=== PATIENT | male | born 1935 | race Caucasian/White ===

== ENCOUNTER 2016-10-19 08:29 | Emergency (ER) ==
--- NOTE | 2016-10-19 09:14 | PROVIDER DOCUMENTATION ---
HPI-General Adult - General Source: patient - History of Present Illness -Gen Adult Nature of Presenting Problems: Pt is a 81 yom who came to the ED with a cc of urinary retention. Pt reports he has not been able to urinate for 10 days and is having bladder pain. Pt reports three days ago he had a watery like diarrhea. Pt reports he gets up every hour and tries to urinate but cannot. Location of Pain/Injury: reports: abdomen (suprapubic) Pain Radiation: reports: no radiation Quality of Pain: reports: fullness Severity: reports: mild Onset/Duration: reports: other (10 days) Timing: reports: still present Modifying Factors: worse with: urinating Associated Symptoms: reports: diarrhea. denies: nausea Similar Symptoms Previously?: No Recently seen or treated by another doctor?: No <Ester Sandhu - Last Filed: 10/19/16 14:51> <Mando Boswell - Last Filed: 10/19/16 14:58> - General Chief Complaint: Urinary Retention Stated Complaint: CANT PEE Time Seen by Provider: 10/19/16 08:55 Allergies/Adverse Reactions: Patient Allergies Allergy/AdvReac Type Severity Reaction Status Date / Time Sulfa (Sulfonamide Allergy Severe Unknown Verified 10/19/16 09:27 Antibiotics) Home Medications: Home Medication List Medication Instructions Recorded Confirmed Last Taken Type ATORVAstatin [Lipitor] 40 mg PO QHS 03/09/14 10/19/16 10/18/16 History Buspirone [Buspar] 15 mg PO DAILY 03/09/14 10/19/16 10/18/16 History Ezetimibe [Zetia] 10 mg PO QHS 03/09/14 10/19/16 10/18/16 History Levothyroxine [Synthroid] 50 microgm PO DAILY 03/09/14 10/19/16 10/18/16 History Iron Carbonyl/Ascorbic Acid 1 each PO DAILY #0 tablet 03/25/14 10/19/16 Rx [Icar-C] Metoprolol Succinate E.r. [Toprol 25 mg PO DAILY 03/12/15 10/19/16 10/18/16 History Xl] Omeprazole 40 mg PO DAILY 11/28/15 10/19/16 10/09/16 History Loperamide [Imodium] 2 mg PO PRN PRN #16 capsule 10/19/16 Unknown Rx Review of Systems - Adult - REVIEW OF SYSTEMS - ADULT Constitutional: denies: chills, fever Eyes: reports: no symptoms reported Ears, Nose, Mouth & Throat: denies: epistaxis, mouth/dental pain Cardiovascular: reports: no symptoms reported Respiratory: reports: no symptoms reported Gastrointestinal: reports: abdominal pain, diarrhea. denies: nausea, vomiting Genitourinary: reports: urinary retention. denies: discharge, hesitency Musculoskeletal: reports: no symptoms reported Integumentary: reports: no symptoms reported Neurological: reports: no symptoms reported Psychiatric: reports: no symptoms reported Endocrine: reports: no symptoms reported Hematologic/Lymphatic: reports: no symptoms reported Allergic/Immunologic: reports: no symptoms reported All Other Systems: Reviewed and Negative <Ester Sandhu - Last Filed: 10/19/16 14:51> Past History - Adult - PAST MEDICAL HISTORY-ADULT Review of Records: reports: Old Records Reviewed, Nursing Assessment Review Major Childhood Illnesses: reports: denies history Cardiovascular: reports: aortic disease, CHF Respiratory: reports: denies history Gastrointestinal: reports: denies history Obstetrical/Gynecological: reports: denies history Genitourinary: reports: denies history Musculoskeletal: reports: denies history Neurological: reports: denies history Endocrine/Immune: reports: denies history Other Conditions: reports: denies history - PRIOR SURGERIES/PROCEDURES Surgical/Procedure History: reports: joint replacement (bilateral hips) - PRIOR HOSPITALIZATIONS Prior Hospitalizations: reports: for other non-related - IMMUNIZATION STATUS Childhood Immunizations: See Nurse Assessment Flu Vaccine: See Nurse Assessment - FAMILY HISTORY Family History: reviewed, not pertinent <Ester Sandhu - Last Filed: 10/19/16 14:51> Physical Exam-General - PHYSICAL EXAM-ADULT Initial Vital Signs Reviewed: Yes - CONSTITUTIONAL General Appearance: appears well, alert - EYES Eyes: PERRL/EOMI, pink conjunctivae, fundi clear, no AV nicking - HEAD, EARS, NOSE, MOUTH & THROAT HENMT: normocephalic/atraumatic, moist mucous membranes, normal ENT inspection, TMs normal, pharynx normal - NECK Neck: non-tender - RESPIRATORY Respiratory: chest non-tender, lungs clear, normal breath sounds, no pleuratic chest pain, no respiratory distress, no accessory muscle use - CARDIOVASCULAR Cardiovascular: normal peripheral pulses, regular rate, rhythm, no edema, no gallop, no JVD, no murmur - GASTROINTESTINAL (ABDOMEN) Abdominal Exam: soft, tenderness (suprapubic) - LYMPHATIC Lymphatic: no adenopathy - MUSCULOSKELETAL Back Exam: normal inspection, no CVA tenderness, no vertebral tenderness Extremity: normal range of motion, non-tender - SKIN Integumentary: normal color, warm/dry - NEUROLOGIC Neurologic: grossly normal - PSYCHIATRIC Psych/Mental Status: normal mood/affect, normal thought content, normal thought process, oriented x 3 <Ester Sandhu - Last Filed: 10/19/16 14:51> Progress - PLAN OF CARE/RESULTS Progress/Plan/Lab Results: Vital Signs - 24 hr 10/19/16 08:42 Temperature 97.8 F Pulse Rate 89 Respiratory 18 Rate Blood Pressure 153/84 O2 Sat by Pulse 100 Oximetry Orders Category Date Time Status Bladder Scan and Record Result ORDERED Care 10/19/16 08:46 Active CBC WITH ELECTRONIC DIFF [HEME] Stat Lab 10/19/16 09:06 Uncollected CMP [COMPREHENSIVE METABOLIC PANEL] [CHEM] Stat Lab 10/19/16 09:06 Uncollected UA NIMS W/REFLEX CULT [URINALYSIS] Stat Lab 10/19/16 09:06 Uncollected - REASSESSMENT Reassessment #1 Time Reassessed: 10:15 (Pt reports when all of this started he had black stool. Now his stool is watery. ) Status: unchanged <Ester Sandhu - Last Filed: 10/19/16 14:51> Departure - Departure Time of Disposition Order: 14:51 Certified Medical Emergency: Emergent <Ester Sandhu - Last Filed: 10/19/16 14:51> - Departure Time of Disposition Order: 14:53 Certified Medical Emergency: Emergent <Mando Boswell - Last Filed: 10/19/16 14:58> - Departure DIAGNOSIS: Dehydration Diarrhea Qualifiers: Diarrhea type: unspecified type Qualified Code(s): R19.7 - Diarrhea, unspecified Disposition: HOME 01 Condition: Stable Additional Instructions: force fluids to keep from being dehydrated ED Follow Up Instructions: You have been treated by a care provider in the Emergency Department. These instructions are being provided to you so you can have an understanding of how to care for yourself upon discharge. Upon discharge from the Emergency Department, you are responsible for making arrangements for follow-up care by a physician of your choice. Take all prescribed medications as directed. Return to the Emergency Department immediately for any new or worsening symptoms. You may call the Physician Referral phone number at [phone] to obtain a list of Physicians who are taking new patients. Prescriptions: Loperamide [Imodium] 2 mg PO PRN PRN #16 capsule PRN Reason: Diarrhea Referrals: Claudio Andrew MD [Primary Care Provider] - Attestation - Scribe Verification/Attestation Scribe:: Ester Sandhu Acting as Scribe for:: Mando Boswell Scribe documention review:: This chart was documented by a scribe and accurately reflects the service the provider performed and the decisions made by the provider. <Ester Sandhu - Last Filed: 10/19/16 14:51> Physician Attestation
[2016-10-19 09:35] LABS: MANUAL DIFF NEEDED? NO
[2016-10-19 09:53] LABS: ALBUMIN 4.2 g/dL (3.5-5.0); CALCIUM 9.2 mg/dL (8.8-10.2); POTASSIUM 4.3 mmol/L (3.5-5.1); TOTAL BILIRUBIN 1.13 mg/dL (0.20-1.00); TOTAL PROTEIN 7.1 g/dL (6.3-8.3)
[2016-10-19] MEDS ORDERED: NS 1,000 ML IV ONE (10:06)
[2016-10-19] MEDS ORDERED: NS 2,000 ML IV ONE (10:16)
[2016-10-19 10:22] LABS: EOS# 0.03 X1000 (0.0-0.7); EOS% 0.5 % (0.0-10.0); HEMATOCRIT 43.9 % (42.0-52.0); HEMOGLOBIN 14.7 g/dL (14.0-18.0); IMM GRAN# 0.02 X1000 (0.0-0.04); IMM GRAN% 0.3 % (0.0-0.5); LYMPH# 1.19 X1000 (1.2-3.4); LYMPH% 20.8 % (20.5-51.1); MCH 34.8 PG (27-31); MCHC 33.5 g/dL (33-37); MCV 103.8 FL (81-99); MONO# 0.62 X1000 (0.11-0.59); MONO% 10.8 % (1.7-9.3); MPV 10.8 FL (7.4-10.4); NEUT% 67.6 % (42.2-75.2); PLT 53 X1000 (130-400); RBC 4.23 XMIL (4.7-6.1)
[2016-10-19] MEDS ORDERED: IMODIUM PO ONE (13:32)
[2016-10-19 14:28] LABS: URINE CULTURE NEEDED? NO; URINE MICRO REVIEW NEEDED? NO; URINE SOURCE CLEAN CATCH
[2016-10-19 14:38] LABS: BILIRUBIN URINE NEGATIVE (NEGATIVE); BLOOD URINE NEGATIVE (NEGATIVE); COLOR YELLOW; GLUCOSE URINE NEGATIVE (NEGATIVE); LEUKOCYTES URINE NEGATIVE (NEGATIVE); NITRITE URINE NEGATIVE (NEGATIVE); PROTEIN URINE NEGATIVE (NEGATIVE); SP GRAVITY URINE 1.017; TURBIDITY URINE CLEAR (CLEAR); UROBILINOGEN URINE NORMAL (NORMAL)
[2016-10-19 14:39] LABS: UR EPITHELIAL CELLS <10 /HPF (<10); URINE BACTERIA NEGATIVE /HPF; URINE RBC <10 /HPF (<10); URINE WBC <10 /HPF (<10)
[2016-10-19 15:43] VITALS: BP 140/82
== END 2016-10-19 15:51 | disposition home or self-care (01) ==
LOC: ED 08:29
DX: E86.0 Dehydration (principal); R19.7 Diarrhea, unspecified; R33.9 Retention of urine, unspecified; R10.9 Unspecified abdominal pain; R10.819 Abdominal tenderness, unspecified site; Z79.899 Other long term (current) drug therapy; Z96.643 Presence of artificial hip joint, bilateral
CPT/HCPCS: 36415; 80053; 81001; 82270; 84436; 84443; 85025; 87324; 87449; 99284; J7030

== ENCOUNTER 2019-03-28 12:15 | Inpatient (IN) ==
--- NOTE | 2019-03-28 12:30 | EKG Report ---
Test Performed on : 03/28/2019 12:27:50 PM Test Reason : sob Blood Pressure : / mmHG Vent. Rate : 145 BPM Atrial Rate : 144 BPM P-R Int : 000 ms QRS Dur : 134 ms QT Int : 334 ms P-R-T Axes : 000 -61 130 degrees QTc Int : 518 ms Wide QRS tachycardia. Left axis deviation Left bundle branch block Abnormal ECG When compared with ECG of 14-JAN-2016 09:02, Wide QRS tachycardia. has replaced Sinus rhythm. Vent. rate has increased BY 77 BPM Unconfirmed Result
[2019-03-28] MEDS ORDERED: CARDIZEM IV ONE (12:36)
[2019-03-28] MEDS ORDERED: NS 1,000 ML ONE (12:42)
--- NOTE | 2019-03-28 13:07 | Diag Imaging Result Doc PS360 ---
EXAM: CHEST-1 VIEW 03/28/2019 HISTORY: tachycardia, dyspnea TECHNIQUE: AP portable at 1251 COMMENT: The inspiration is suboptimal. There is bibasilar platelike atelectasis. There is apparent pleural fluid on the left if not on the right. The latter may have diminished slightly since 03/24/2019. IMPRESSION: Poor inspiration. Bibasilar atelectasis. Left pleural effusion. Electronically signed by Randell Tran 03/28/2019 1:05 PM
[2019-03-28 13:12] LABS: EOS% 0.3 % (0.0-10.0); HEMATOCRIT 33.4 % (42.0-52.0); HEMOGLOBIN 10.2 g/dL (14.0-18.0); IMM GRAN% 0.3 % (0.0-0.5); LYMPH# 0.57 X1000 (1.2-3.4); LYMPH% 8.8 % (20.5-51.1); MCH 32.4 PG (27-31); MCHC 30.5 g/dL (33-37); MONO% 17.1 % (1.7-9.3); MPV 10.1 FL (7.4-10.4); NEUT# 4.77 X1000 (1.4-6.5); NEUT% 73.5 % (42.2-75.2); PLT 68 X1000 (130-400); RBC 3.15 XMIL (4.7-6.1); RDW 13.6 % (11.5-14.5); WBC 6.49 X1000 (4.8-10.8)
[2019-03-28 13:13] LABS: EOS# 0.02 X1000 (0.0-0.7); IMM GRAN# 0.02 X1000 (0.0-0.04); MONO# 1.11 X1000 (0.11-0.59)
[2019-03-28 13:14] LABS: ESTIMATED GFR > 60
[2019-03-28 13:22] LABS: AGAP 16; ALB/GLOB RATIO 1.4; ALBUMIN 3.7 g/dL (3.5-5.0); ALKALINE PHOSPHATASE 135 U/L (32-122); BUN 19 mg/dL (8-22); CALCIUM 7.9 mg/dL (8.8-10.2); CHLORIDE 104 mmol/L (98-107); COSMO 295; CREATININE 0.9 mg/dL (0.7-1.2); GLUCOSE 112 mg/dL (70-104); GOT 91 U/L (10-34); GPT 63 U/L (10-44); MAGNESIUM 0.8 mg/dL (1.5-2.7); POTASSIUM 4.3 mmol/L (3.5-5.1); SODIUM 147 mmol/L (136-145); TCO2 27 mmol/L (25-35); TOTAL BILIRUBIN 0.68 mg/dL (0.20-1.00); TOTAL PROTEIN 6.3 g/dL (6.3-8.3)
[2019-03-28 13:31] LABS: LYMPHS 6 % (21-51); MONO 22 % (1-9); SEGS 72 % (42-75)
[2019-03-28] MEDS ORDERED: MAGNESIUM SULFATE 4 GM/S.W.I. 4 GM/100 ML IVPB IV ONE (13:37)
[2019-03-28 14:08] LABS: INR 0.98; PROTIME 13.1 Seconds (11.0-16.0)
[2019-03-28 14:43] LABS: URINE SOURCE CLEAN CATCH
[2019-03-28 14:47] LABS: BILIRUBIN URINE NEGATIVE (NEGATIVE); BLOOD URINE SMALL (NEGATIVE); COLOR YELLOW; GLUCOSE URINE NEGATIVE (NEGATIVE); KETONE URINE NEGATIVE (NEGATIVE); LEUKOCYTES URINE NEGATIVE (NEGATIVE); NITRITE URINE NEGATIVE (NEGATIVE); PH URINE 5.5; PROTEIN URINE NEGATIVE (NEGATIVE); SP GRAVITY URINE 1.012; TURBIDITY URINE CLEAR (CLEAR); UROBILINOGEN URINE NORMAL (NORMAL)
[2019-03-28 14:48] LABS: UR EPITHELIAL CELLS <10 /HPF (<10); URINE BACTERIA NEGATIVE /HPF; URINE RBC 20-40 /HPF (<10); URINE WBC <10 /HPF (<10)
[2019-03-28 15:16] LABS: T4 6.76 ug/dL (4.60-12.00); TSH 3.68 uIUmL (0.27-4.20)
--- NOTE | 2019-03-28 15:33 | EKG Report ---
Test Performed on : 03/28/2019 12:52:27 PM Test Reason : CHANGE OF RHYTM Blood Pressure : / mmHG Vent. Rate : 073 BPM Atrial Rate : 073 BPM P-R Int : 190 ms QRS Dur : 142 ms QT Int : 418 ms P-R-T Axes : 000 -58 142 degrees QTc Int : 460 ms Normal sinus rhythm. Left axis deviation Left bundle branch block Abnormal ECG When compared with ECG of 28-MAR-2019 12:27, (Unconfirmed) Sinus rhythm. has replaced Wide QRS tachycardia. Vent. rate has decreased BY 72 BPM Unconfirmed Result
--- NOTE | 2019-03-28 15:37 | EKG Report ---
Test Performed on : 03/28/2019 1:37:12 PM Test Reason : ED. No order in [place] Blood Pressure : / mmHG Vent. Rate : 099 BPM Atrial Rate : 099 BPM P-R Int : 000 ms QRS Dur : 138 ms QT Int : 336 ms P-R-T Axes : 000 -59 135 degrees QTc Int : 431 ms Undetermined rhythm Left axis deviation Left bundle branch block Abnormal ECG When compared with ECG of 28-MAR-2019 12:52, (Unconfirmed) Current undetermined rhythm precludes rhythm comparison, needs review Unconfirmed Result
[2019-03-28] MEDS ORDERED: ZOFRAN IV PRN (15:48)
[2019-03-28] MEDS ORDERED: TYLENOL PO PRN (15:48)
--- NOTE | 2019-03-28 15:55 | HISTORY AND PHYSICAL ---
PRIMARY CARE PHYSICIAN: Dr. Andrew. FOLDED TOWEL MACHINE OPERATOR: Dr. Joiner. CHIEF COMPLAINT: Fatigue, dyspnea on exertion and tachycardia. HISTORY OF PRESENTING ILLNESS: This is an 83-year-old male who presents to [facility] via EMS after he was seen at his primary care physician's clinic this morning and was found to be tachycardic and dyspneic on exertion, so he was sent to the emergency room for evaluation. When he arrived we did an EKG that showed some atrial fibrillation flutter at 145 with a wide QRS and a known left bundle branch block. He was given 15 mg of Cardizem IV x1. Rate has decreased to 103. Laboratory data: Showed a sodium of 147, magnesium of 0.8. ProBNP of 27,668 so he is being admitted for further evaluation and treatment. PAST MEDICAL HISTORY: AAA, myelodysplastic syndrome, CHF, hypertension, CVA, hypothyroidism, skin cancer, prostate cancer, coronary artery disease and hyperlipidemia. PAST SURGICAL HISTORY: CABG and aortic valve replacement, heart stent placement, hernia, bilateral hip replacement, and a lumbar surgery. FAMILY HISTORY: Reviewed and noncontributory. SOCIAL HISTORY: Currently lives with family. Denies any tobacco use. Drinks 2 glasses of wine a day and denies any illicit drug use. ALLERGIES: Sulfa. HOME MEDICATIONS: A current list will need to be obtained, reconciled, reviewed and restarted as appropriate, will place an order for nursing to update and confirm home medications. LABORATORY DATA: Showed a white blood cell count of 6.49, hemoglobin 10.2, hematocrit 33.4, platelets 68,000. Sodium 147, potassium 4.3, chloride 104, CO2 27, BUN of 19, creatinine 0.9, glucose 112, magnesium of 0.8, AST of 91, ALT 63, alkaline phosphatase 135. Troponin was 0.027. ProBNP of 27,668. Urinalysis was negative. EKG showed atrial fibrillation- flutter with a wide QRS at 145 with a known left bundle branch block. Chest x-ray showed poor inspiration, bibasilar atelectasis and a left pleural effusion. REVIEW OF SYSTEMS: He denied any fever, chills, blurred vision, dizziness. He denied any chest pain, palpitations. He did have dyspnea on exertion, shortness of breath, tachycardia, fatigue. Denied any abdominal pain, constipation, diarrhea, burning or hurting with urination. PHYSICAL EXAMINATION: On arrival he had a temperature of 97.7 degrees, pulse 145, respirations 29, blood pressure 128/87, saturating 95% on 2 L via nasal cannula. Currently he remains in atrial fibrillation at 103. GENERAL: This is an 83-year-old male sitting up in the bed, answers questions appropriately. He is noted to be thin, cachectic and pale in color. HEEMNT: Normocephalic, atraumatic. Normal ENT inspection. Oropharynx and nares are clear. EYES: Pupils are equal, round, reactive to light and accommodation. Extraocular movements are intact. NECK: Normal inspection, normal range of motion. LUNGS: Clear to auscultation bilaterally with equal lung expansion and chest wall movement. HEART: With irregular rate and rhythm. No murmurs, rubs, or gallops. ABDOMEN: Soft, nontender, nondistended. Bowel sounds are present x4 quadrants. MUSCULOSKELETAL: 4/5 strength x4 extremities. NEUROLOGICAL: The cranial nerves 2-12 appear grossly intact. ASSESSMENT: 1. New onset atrial fibrillation. 2. Hypomagnesemia. 3. Elevated liver function tests. 4. Congestive heart failure history of. PLAN: He will be admitted to the PVC unit placed on telemetry, O2 per protocol. We will check an echocardiogram. We will start him on Cardizem 30 mg p.o. q.6 hours. We will consult cardiology. He was given magnesium 4 g IV in the emergency room. We will recheck a level in the morning along with a CBC, BMP. He has a TSH, free T4 level pending and further orders after seen by attending and by principal consultant. Dictated by KENDRA Thompson for Varghese Hinojosa MD cc: KENDRA Thompson MD Kenneth E. Mashburn, MD
--- NOTE | 2019-03-28 16:29 | HISTORY AND PHYSICAL ---
ADDENDUM REPORT H P was done by Yaneth Driftwood Patient admitted on 03/2201/02/2019. He is a patient of Dr. Andrew. Apparently saw Dr. Andrew in his office. He had some palpitations. This showed significant tachycardia reported as a wide complex. Suspected it was atrial fibrillation. He was found to be tachycardic, and he has complained of dyspnea on exertion. Was sent to the emergency room. He had an EKG that showed some atrial fibrillation with a rate of 145, wide-complex QRS, known left bundle branch block. He was given 15 mg Cardizem IV, and the rate decreased to 103. Sodium was 147. Magnesium was 0.8. ProBNP 27,668. PAST MEDICAL HISTORY: Includes abdominal aortic aneurysm, myelodysplastic syndrome, congestive heart failure, hypertension, CVA, hypothyroidism, skin cancer, prostate cancer, coronary artery disease, and hyperlipidemia. PAST SURGICAL HISTORY: CABG, aortic valve replacement, heart stent placement, hernia, bilateral hip replacement, and lumbar surgery. PLAN: To supplement his magnesium. See if we can control rate. Cardiology to follow. Note that he had elevation in his liver function tests or his transaminases, and he has a history of congestive heart failure. Currently, he is on diltiazem 30 mg p.o. q.6 h., and he was given magnesium 4 g IV. REVIEW OF HIS LABORATORY DATA: Hematocrit 33, hemoglobin 10, white blood cell count 6490, platelet count 68,000. Sodium 147, potassium 4.3, chloride 104, BUN 19, creatinine 0.9. Magnesium was 0.8. Calcium 7.9 with an albumin of 3.7. ProBNP 27,668. cc: Varghese Hinojosa MD
[2019-03-28] MEDS: CARDIZEM PO SCH (20:38)
--- NOTE | 2019-03-28 23:51 | ECHO REPORT ---
ORDER DATE: 03/28/2019 MEASUREMENTS: Septal thickness 1.1, left ventricular internal diameter in diastole 5.0, posterior wall thickness 1.0. Left atrium 5.2, aortic root 3.2. SUMMARY: 1. Fair quality study. 2. Aortic valve has been replaced with bioprosthesis which appears to open adequately on 2- dimensional images. Peak gradient across the aortic valve is 33 mmHg with a mean gradient 16 mmHg. Values consistent with adequate prosthetic valve function. There is mild aortic regurgitation. The aortic root is normal in size. The proximal ascending aorta is mild to moderately dilated. Mitral, tricuspid and pulmonic valves are without evidence of structural abnormality with mild mitral regurgitation, mild tricuspid regurgitation, and trace pulmonic insufficiency. The estimated systolic PA pressure by Doppler is 65 to 70 mmHg suggesting moderate to severe pulmonary hypertension. 3. Normal left ventricular chamber size with borderline concentric left hypertrophy is suggested. Estimated left ejection fraction approximately 25% in the setting of global hypokinesis and paradoxical septal wall motion. The latter is probably related to interventricular conduction abnormality. Left atrium is moderately enlarged. Right atrium is mildly enlarged. Right ventricle was normal in size with grossly preserved right ventricular systolic function. 4. No pericardial effusion. 5. Right pleural effusion noted. 6. Mild dilatation of inferior vena cava suggests mild elevation central venous pressure. 7. Atrial fibrillation during study. cc: MD Yaneth Gill CRNP
[2019-03-29] MEDS: CARDIZEM PO SCH ×2 (02:57→08:23)
[2019-03-29 07:27] LABS: EOS# 0.04 X1000 (0.0-0.7); EOS% 0.7 % (0.0-10.0); HEMATOCRIT 30.2 % (42.0-52.0); HEMOGLOBIN 9.1 g/dL (14.0-18.0); LYMPH# 0.76 X1000 (1.2-3.4); LYMPH% 14.1 % (20.5-51.1); MCH 32.5 PG (27-31); MCHC 30.1 g/dL (33-37); MCV 107.9 FL (81-99); MONO# 0.62 X1000 (0.11-0.59); MONO% 11.5 % (1.7-9.3); MPV 10.7 FL (7.4-10.4); NEUT# 3.98 X1000 (1.4-6.5); NEUT% 73.7 % (42.2-75.2); PLT 71 X1000 (130-400); RDW 13.7 % (11.5-14.5)
[2019-03-29 07:39] LABS: AGAP 11; BUN 18 mg/dL (8-22); CALCIUM 8.4 mg/dL (8.8-10.2); CHLORIDE 103 mmol/L (98-107); COSMO 288; CREATININE 0.7 mg/dL (0.7-1.2); ESTIMATED GFR > 60; GLUCOSE 119 mg/dL (70-104); SODIUM 143 mmol/L (136-145); TCO2 29 mmol/L (25-35)
--- NOTE | 2019-03-29 07:56 | EKG Report ---
Test Performed on : 03/29/2019 07:51:46 AM Test Reason : cardiac arrhythmia Blood Pressure : / mmHG Vent. Rate : 072 BPM Atrial Rate : 072 BPM P-R Int : 236 ms QRS Dur : 142 ms QT Int : 434 ms P-R-T Axes : 000 -16 218 degrees QTc Int : 475 ms Sinus rhythm. with 1st degree AV block. Left bundle branch block Abnormal ECG When compared with ECG of 28-MAR-2019 13:37, (Unconfirmed) Previous ECG has undetermined rhythm, needs review T wave inversion now evident in Inferior leads Confirmed by Mallika Fletcher MD ([id number]) on 03/29/2019 8:31:03 AM
--- NOTE | 2019-03-29 09:03 | EKG Report ---
Test Performed on : 03/29/2019 08:46:55 AM Test Reason : Rhythm Change Blood Pressure : / mmHG Vent. Rate : 144 BPM Atrial Rate : 147 BPM P-R Int : 000 ms QRS Dur : 134 ms QT Int : 338 ms P-R-T Axes : 000 -53 138 degrees QTc Int : 523 ms Wide QRS tachycardia. Left axis deviation Left bundle branch block Abnormal ECG When compared with ECG of 29-MAR-2019 07:51, Wide QRS tachycardia. has replaced Sinus rhythm. Vent. rate has increased BY 72 BPM Confirmed by Mallika Flecther MD ([id number]) on 03/30/2019 12:01:45 PM
[2019-03-29] MEDS ORDERED: LASIX IV ONE (13:02)
[2019-03-29] MEDS ORDERED: LOPRESSOR IV PRN (13:04)
[2019-03-29] MEDS ORDERED: LOVENOX 1 MG/KG SUBQ SCH (13:15)
--- NOTE | 2019-03-29 13:34 | CARDIOLOGY CONSULTATION ---
DATE: 03/29/2019 CHIEF COMPLAINT ON PRESENTATION: Heart racing, fatigue and dyspnea. HISTORY OF PRESENT ILLNESS: Mr. Christensen is an 83-year-old male with a history of coronary disease, coronary artery bypass grafting and aortic stenosis. He had a 19 mm Colt-Ruano pericardial valve placed in 2013. He presented for palpitations that seems like it has been going on for as long as a month. He noted increased fatigue and what sounds like orthopnea as well. He was subsequently seen by his primary care physician yesterday, who referred him to [facility] for evaluation of new onset atrial fibrillation. Presently, the patient reports he feels better although his heart rate still is in the 100s to 110s and he remains in atrial fibrillation. PAST MEDICAL HISTORY: Significant for: 1. Coronary disease with history of myocardial infarction in 1994 in [place]. In addition, he has a history of coronary artery bypass grafting in April 2014 at which time he had a vein graft to the first diagonal as well as tissue valve replacement of his aortic valve. 2. Aortic stenosis status post aortic valve replacement in April 2014 with a 19 mm Colt- Ruano pericardial valve. 3. Paroxysmal atrial fibrillation which previously had been postoperative. 4. COPD. 5. Hypertension. 6. Hyperlipidemia. 7. Hypothyroidism. 8. History of TIA. SOCIAL HISTORY: Currently lives with family. No tobacco. FAMILY HISTORY: Hypertension. REVIEW OF SYSTEMS: A 10 system review of systems is negative except for those things mentioned in the HPI. PHYSICAL EXAMINATION: Vital signs: Patient is afebrile. His heart rate currently is in the 100s to 110s, blood pressure most recently is 119/62. He has limited intake and output data. Generally: No acute distress. HEENT: Oropharynx is moist. Poor dentition. Eye examination shows pink conjunctivae, white sclerae. Neck: Shows no obvious thyromegaly or thyroid tenderness. Cardiovascular: He sounds to be in an irregularly irregular rhythm. He has no obvious murmurs. He has no S3. He has no lower extremity edema. He has warm and well perfused extremities. Chest: Clear bilaterally with the exception of mild reduction in breath sounds in what sounds like the left base. He has no increased work of breathing. Abdomen: Soft, nontender, nondistended. He has no obvious organomegaly. Skin: Warm and dry throughout without any rashes. Neurological: He is moving all extremities well. He has no lateralizing deficits. PERTINENT DATA: His initial EKG shows a left bundle branch block with a tachycardic rate. Unclear if this is atrial fibrillation. His next EKG occurring on the at 13:37 shows what appears to be atrial fibrillation, rate of 99 beats per minute. A left bundle continues to be present. Next EKG on the at 12:52 shows what appears to be possible sinus rhythm, atrial fibrillation, left bundle. Subsequent EKG the at 7:51 appears to show probable coarse atrial fibrillation versus flutter, rate of 72 beats per minute, and next EKG on the at 8:46 shows a rapid wide complex rhythm with his baseline left bundle and a rate of 144 beats per minute. His chest x-ray suggested a left pleural effusion. His lab data showed a white count 5.4, hematocrit 30, platelet count of 71,000. His sodium is 143, potassium is 4, BUN 18, creatinine 0.7. His proBNP yesterday [place] 64014. His albumin is 3.7. His cardiac enzymes were negative. He had an echocardiogram performed yesterday demonstrating a bioprosthetic valve with a mean gradient of 16, ejection fraction of 25% in the setting of a global hypokinesis. This appeared to be a new reduction in EF based on his last MUGA scan which was in April 2018 which calculated his ejection fraction at 58%. ASSESSMENT: Mr. Christensen is an 83-year-old gentleman with a recent onset of atrial fibrillation with new reduction in his left ventricular systolic function. PLAN: At this point, we will proceed with diuresis of the patient. I will give him 40 mg of Lasix today and tomorrow. We will change him from Cardizem to metoprolol 25 q.6 hours, place him on IV Lopressor as well for p.r.n. usage. We will check a basic metabolic panel, mag, proBNP. We will check laboratories in the morning. Further recommendations to follow. Likely will continue with attempts at diuresis of the patient and then consideration for possible cardioversion. Considering his length of symptoms, he could have a rate-related drop in his ejection fraction. I would likely treat him first and then potentially pursue an ischemia evaluation if his EF does not recover. cc: Perry Sagastume MD
[2019-03-29] MEDS: LOPRESSOR PO SCH ×2 (14:05→20:25)
--- NOTE | 2019-03-29 17:13 | PROGRESS NOTE ---
DATE: 03/29/2019 SUBJECTIVE: Mr. Christensen is feeling better. His breathing is a little better. On the monitor, it is hard to tell; it looks like it is regular rhythm, but it looks like there may be some flutter waves as well. OBJECTIVE: Temperature 97.7 degrees, pulse 70, respirations 20, blood pressure 121/64. Pupils are equal and round. Lungs are clear in all lung vogel. Cardiovascular: Regular rhythm and rate without murmur or S3. Abdomen is soft. Skin is warm and dry. ASSESSMENT AND PLAN: 1. Recent onset of atrial fibrillation with a new reduction in his left ventricular systolic function. We will proceed with diuresis, giving 40 mg of Lasix today and tomorrow. Change him from Cardizem to metoprolol 25 mg q.6 h. and IV Lopressor for p.r.n. heart rate. Follow his electrolytes and proBNP. Seems to be doing better. 2. History of hypothyroidism. Continue his Synthroid. 3. Supplemented his magnesium. 4. Mild elevation of liver function tests. This may just be passive congestion. Looking at his echocardiogram, aortic valve was replaced with a bioprosthesis which appears to be opening adequately. There is mild aortic regurgitation. PA pressure 65 to 70 mmHg. Mild mitral regurgitation, mild tricuspid regurgitation. Normal left ventricular chamber sizes, but ejection fraction approximately 25% in the setting of global hypokinesis and paradoxical septal wall motion, and the latter is probably related to intraventricular conduction abnormality. Left atrium moderately enlarged. Right atrium mildly enlarged. No pericardial effusion. cc: Varghese Hinojosa MD
[2019-03-29] MEDS: LIPITOR PO SCH (20:25)
[2019-03-30] MEDS: LOPRESSOR PO SCH ×4 (02:55→20:29)
[2019-03-30] MEDS ORDERED: SYNTHROID PO SCH (07:00)
[2019-03-30 08:51] LABS: AGAP 13; BUN 25 mg/dL (8-22); CALCIUM 8.6 mg/dL (8.8-10.2); CHLORIDE 101 mmol/L (98-107); COSMO 281; CREATININE 0.8 mg/dL (0.7-1.2); ESTIMATED GFR > 60; GLUCOSE 89 mg/dL (70-104); MAGNESIUM 1.9 mg/dL (1.5-2.7); POTASSIUM 4.3 mmol/L (3.5-5.1); SODIUM 139 mmol/L (136-145); TCO2 25 mmol/L (25-35)
[2019-03-30] MEDS ORDERED: TOPROL XL PO SCH (09:00)
[2019-03-30] MEDS ORDERED: FERROUS SULFATE PO SCH (09:00)
[2019-03-30] MEDS ORDERED: BUSPAR PO SCH ×2 (09:00→11:18)
--- NOTE | 2019-03-30 09:02 | PROGRESS NOTE ---
DATE: 03/30/2019 SUBJECTIVE: Mr. Christensen is feeling better. He is breathing comfortably. I think he would like to go home. OBJECTIVE: Temperature 97.9 degrees, pulse 82, respirations 15, blood pressure 137/73. Pupils are equal and round. Lungs are clear in all lung vogel. Cardiovascular Examination: Regular rhythm and rate without murmur or S3. Urine output was 900 mL. ASSESSMENT AND PLAN: Recent onset of atrial fibrillation with new reduction in left ventricular function. Continue to diurese. I changed his Cardizem to metoprolol 25 mg by mouth every 6 hours. He seems to be doing well. I guess there is a possibility that he could go home today. We will see what cardiology wants to do. Chemistries, we need to check again. This morning, renal function looks good. We did supplement his magnesium. We will wait on his lab. cc: Varghese Hinojosa MD
[2019-03-30] MEDS: VITAMIN E PO SCH (09:38)
[2019-03-30] MEDS: PRILOSEC PO SCH (09:39)
[2019-03-30] MEDS: VITAMIN B-12 PO SCH (09:39)
[2019-03-30] MEDS: COZAAR PO SCH (09:39)
[2019-03-30] MEDS: ZINC SULFATE PO SCH (09:39)
[2019-03-30] MEDS: LASIX IV SCH (09:40)
[2019-03-30] MEDS: ASPIRIN PO SCH (09:40)
--- NOTE | 2019-03-30 15:13 | EKG Report ---
Test Performed on : 03/30/2019 2:45:28 PM Test Reason : afib Blood Pressure : / mmHG Vent. Rate : 068 BPM Atrial Rate : 340 BPM P-R Int : 000 ms QRS Dur : 140 ms QT Int : 454 ms P-R-T Axes : 000 -52 145 degrees QTc Int : 482 ms Wide QRS rhythm. Left axis deviation Nonspecific intraventricular block Cannot rule out Anteroseptal infarct , age undetermined T wave abnormality, consider lateral ischemia Abnormal ECG When compared with ECG of 29-MAR-2019 08:46, Wide QRS rhythm. has replaced Wide QRS tachycardia. Vent. rate has decreased BY 76 BPM Confirmed by Chance GALLEGOS, Mallika Tirado ([id number]) on 03/31/2019 12:10:45 PM
[2019-03-30] MEDS: CORDARONE PO SCH (20:28)
[2019-03-30] MEDS: BUSPAR PO SCH (20:28)
[2019-03-30] MEDS: LIPITOR PO SCH (20:29)
--- NOTE | 2019-03-30 21:45 | CARDIOLOGY PROGRESS NOTE ---
DATE: 03/30/2019 SUBJECTIVE: Mr. Christensen reports he feels much better. His breathing has improved. PHYSICAL EXAMINATION: Vital signs: The patient is afebrile. Heart rate 71, blood pressure 92/55. Most systolics have been in the 110s to 130s. His I's and O's are somewhat difficult to track. Generally: No acute distress. Cardiovascular: He sounds to be in a regular rate and rhythm. Telemetry currently seems to show normal sinus, but during the course of the examination it appeared he converted into an atrial fibrillation in the low 100s. Extremities: No lower extremity edema. Chest: Has reduced breath sounds in the left base with some rales. He has no increased work of breathing. Abdomen: Soft, nontender, nondistended. PERTINENT DATA: His electrocardiogram checked today at 14:45 seems to show sinus rhythm, left bundle, rate of 68 beats per minute. His lab data shows a sodium 139, potassium 4.3, his BUN is 25, creatinine 0.8. His proBNP is 12,204, which is down from 27,000. ASSESSMENT: Mr. Christensen is an 83-year-old gentleman who presents in new onset heart failure with new onset paroxysmal atrial fibrillation. PLAN: His EF is low and possibly rate related. His rate is much better controlled. He seems to be having periodic bouts of sinus. I will place him on amiodarone 400 b.i.d. as I believe considering his ejection fraction issues it would be beneficial to maintain sinus rhythm. I will change him over to 50 of oral metoprolol b.i.d. starting in the morning. He is on an ARB. We will continue with the IV Lasix, check laboratories as well as a chest x-ray in the morning. I have asked Dr. Carlin to see the patient to comment on the use of anticoagulants in a patient with chronic issues with thrombocytopenia. He certainly has an elevated stroke risk considering his history of hypertension, his age and now heart failure. That would give him a CHADS-VASc of 4. cc: Perry Sagastume MD
[2019-03-31] MEDS: SYNTHROID PO SCH (06:24)
--- NOTE | 2019-03-31 07:31 | EKG Report ---
Test Performed on : 03/31/2019 07:11:14 AM Test Reason : afib Blood Pressure : / mmHG Vent. Rate : 076 BPM Atrial Rate : 060 BPM P-R Int : 000 ms QRS Dur : 154 ms QT Int : 454 ms P-R-T Axes : 000 -61 135 degrees QTc Int : 510 ms Atrial fibrillation. Left axis deviation Left bundle branch block Abnormal ECG When compared with ECG of 30-MAR-2019 14:45, (Unconfirmed) Atrial fibrillation. has replaced Wide QRS rhythm. Confirmed by Mallika Fletcher MD ([id number]) on 03/31/2019 12:11:23 PM
[2019-03-31] MEDS: VITAMIN E PO SCH (08:33)
[2019-03-31] MEDS: LASIX IV SCH (08:33)
[2019-03-31] MEDS: CORDARONE PO SCH ×2 (08:33→22:44)
[2019-03-31] MEDS: COZAAR PO SCH (08:34)
[2019-03-31] MEDS: VITAMIN B-12 PO SCH (08:34)
[2019-03-31] MEDS: PRILOSEC PO SCH (08:34)
[2019-03-31] MEDS: BUSPAR PO SCH (08:34)
[2019-03-31] MEDS: ZINC SULFATE PO SCH (08:34)
[2019-03-31] MEDS: ASPIRIN PO SCH (08:34)
[2019-03-31] MEDS: FERROUS SULFATE PO SCH (08:34)
[2019-03-31] MEDS: LOPRESSOR PO SCH ×2 (08:34→22:45)
[2019-03-31 08:40] LABS: AGAP 14; BUN 29 mg/dL (8-22); CHLORIDE 101 mmol/L (98-107); COSMO 289; GLUCOSE 99 mg/dL (70-104); POTASSIUM 3.9 mmol/L (3.5-5.1); SODIUM 142 mmol/L (136-145); TCO2 27 mmol/L (25-35)
[2019-03-31 08:41] LABS: CALCIUM 9.2 mg/dL (8.8-10.2); CREATININE 1.1 mg/dL (0.7-1.2); ESTIMATED GFR > 60; MAGNESIUM 1.6 mg/dL (1.5-2.7)
[2019-03-31] MEDS ORDERED: MAGNESIUM SULFATE 2 GM/S.W.I. 2 GM/50 ML IVPB IV ONE (08:43)
--- NOTE | 2019-03-31 09:16 | CARDIOLOGY PROGRESS NOTE ---
DATE: 03/31/2019 SUBJECTIVE: Mr. Christensen reports his breathing is roughly stable over the last 24 hours. PHYSICAL EXAMINATION: Afebrile. Heart rate 73, blood pressure 115/68. His Is and Os continue to be somewhat difficult to estimate secondary to a number of continent voids not measured. General: He is in no acute distress. Cardiovascular: He sounds to be in a regular rate and rhythm. He has no obvious murmurs. He has no S3. His telemetry seems to show sinus rhythm presently. His chest exam has mild reduction in breath sounds in the left base but otherwise appears clear. His abdomen is soft, nontender. PERTINENT DATA: Sodium 142, potassium 3.9, BUN 29, creatinine is 1.1 which is a trend up from his previous. His magnesium level is 1.6. ASSESSMENT: Mr. Christensen is an 83-year-old gentleman who presented with new onset atrial fibrillation and reduced ejection fraction. PLAN: Likely, his reduced EF is a rate-related reduction. He has been instituted on amiodarone. We are pending evaluation by hematology, who has seen him previously to hopefully comment on his candidacy for anticoagulation in the setting of his atrial fibrillation. We will continue him on an ARB and beta-keisha which seems to be controlling his rate. We will place him on amiodarone with the hope to maintain sinus rhythm. I believe he would be reasonable to discharge tomorrow. I have changed him over to oral Lasix starting tomorrow with his last IV dose being administered today. A chest x-ray is pending. cc: Perry Sagastume MD
--- NOTE | 2019-03-31 09:40 | Diag Imaging Result Doc PS360 ---
EXAM: CHEST-2 VIEWS HISTORY: hypoxia TECHNIQUE: Chest two views COMPARISON: 03/28/2019 FINDINGS: Slightly improved inspiratory effort and aeration compared to the prior study. Basilar atelectasis with pleural effusions remain. A heart valve has been replaced. Decreased pulmonary edema. IMPRESSION: Mild interval improvement. Electronically signed by Gabriel Lomas 03/31/2019 9:38 AM
--- NOTE | 2019-03-31 10:31 | PROGRESS NOTE ---
DATE: 03/31/2019 SUBJECTIVE: This patient feels better. Heart rate has been controlled. Cardiology department following this patient closely. Hopefully, we can get hematology/oncology on board to take care of the anticoagulation. He is still in atrial fibrillation. OBJECTIVE: Vital Signs: Temperature 97.2 degrees, pulse 73, respiratory rate 14, blood pressure 115/68, oxygen saturation 100% on 2 L of nasal cannula. HEENT: Head normocephalic. No trauma. PERRLA. Neck: Supple. No JVD. No masses. Central trachea. Chest: Clear to auscultation. No wheezing. No rales. Cardiovascular: Irregularly irregular rate and rhythm. Abdomen: Soft, nontender, nondistended. No hepatosplenomegaly. Extremities: No edema. Neurological Examination: The patient is alert. He is oriented x3. No focal deficits. Laboratory: Sodium 142, potassium 3.9, chloride 101, bicarbonate 27, BUN 29, creatinine 1.1, glucose 99, calcium 9.2, magnesium 1.6. ASSESSMENT AND PLAN: 1. Recent onset atrial fibrillation with new reduction in the left ventricular systolic function. We will continue following the recommendation of the cardiology department. They are following this patient closely. This patient is feeling better. He should be on anticoagulation but given his platelet count, we will wait for hematology/oncology evaluation. 2. Congestive heart failure, systolic dysfunction, low ejection fraction. Followed by cardiology. Continue with diuresis and treatment. 3. Thrombocytopenia. This is chronic, at least since 2013. It seems to be stable. We will get a new complete blood count in the morning. Hematology/oncology has been consulted. 4. History of aortic abdominal aneurysm. Aware. 5. History of myelodysplastic syndrome. As per the patient, he has not been followed by the hematology/oncology department, or at least he does not remember that. We will monitor. 6. History of cerebrovascular accident. Aware. No new issues. 7. History of prostate and skin cancer. Aware. 8. History of coronary artery disease and hyperlipidemia. Aware. Cardiology on board. No chest pain. 9. Hypomagnesemia, resolved. 10. Macrocytic anemia. I will get the anemia workup. Hematology/oncology has been consulted. cc: Ammon Doran MD
--- NOTE | 2019-03-31 20:14 | HEMO/ONC CONSULTATION ---
DATE: 03/31/2019 ADMITTING PHYSICIAN: Dr. Hinojosa. REQUESTING PHYSICIAN: Dr. Sagastume. We appreciate this consult. CHIEF COMPLAINT: History of thrombocytopenia, in need of anticoagulation. HISTORY OF PRESENT ILLNESS: Mr. Misha Christensen is an 83-year-old, male, well known to Dr. Carlin, with a history of a low-grade myelodysplastic syndrome, MGUS, and thrombocytopenia. The patient is monitored with regular clinic visits and has been stable. He presented to [facility] Emergency Department via EMS. After being seen by his primary care physician, Mr. Christensen was found to be tachycardic with dyspnea on exertion. EKG revealed atrial fibrillation/flutter at a rate of 145, with a wide QRS. The patient was given 15 mg of Cardizem IV and rate decreased to 103. He is admitted for the same. Of note, proBNP was 27,668. We are consulted by Cardiology as the patient is in need of anticoagulation in the setting of persistent thrombocytopenia. PAST MEDICAL HISTORY: 1. Myelodysplastic syndrome. 2. MGUS. 3. Thrombocytopenia. 4. Abdominal aortic aneurysm. 5. Congestive heart failure. 6. Hypertension. 7. Stroke. 8. Hypothyroidism. 9. Skin cancer. 10. Prostate cancer. 11. Coronary artery disease. 12. Hyperlipidemia. PAST SURGICAL HISTORY: Coronary artery bypass graft with aortic valve replacement, heart stent placement, hernia repair, bilateral hip replacement, and lumbar surgery. FAMILY HISTORY: Negative for any hematologic or oncologic disease. SOCIAL HISTORY: The patient drinks 2 glasses of wine daily. He does not use tobacco or illicit drugs. MEDICATIONS ON ADMISSION: Currently being reconciled. ALLERGIES: Sulfa. REVIEW OF SYSTEMS: A 14-point review of systems was obtained and is negative, except for mentioned in the HPI. PHYSICAL EXAMINATION: Mr. Christensen is a pleasant, 83-year-old male, lying supine in bed in no immediate distress.Vital Signs: Temperature 97.2 degrees, blood pressure 115/68, heart rate 73, respirations 14, O2 saturation is 100% on 2 L nasal cannula O2. HEENT: Normocephalic, atraumatic. Mucous membranes are slightly pale and moist. Sclerae anicteric. Extraocular movements intact. Neck: Supple. Lungs: Clear to auscultation bilaterally. Chest expansion equal bilaterally. Cardiovascular: S1, S2 is heard without murmur, rub, or gallop. Rate is irregular. Abdomen: Soft, nontender, nondistended. Bowel sounds positive in all quadrants. No rebound or guarding noted. Extremities: Without clubbing, cyanosis, or edema. Dermatologic: No rashes, bruises, or lesions. Neurologic: The patient is awake, alert, and oriented x3. No focal deficit. LABORATORY DATA: Hemoglobin 9.1, hematocrit 30.2, white blood cell count 5.40, platelets 71,000. Sodium 142, potassium 3.9, chloride 101, CO2 is 27, BUN 29, creatinine 1.1, glucose 99, calcium 9.2, magnesium 1.6. ProBNP is 20,225. ASSESSMENT AND PLAN: 1. Low-grade myelodysplastic syndrome. CBC has been stable. We will continue to monitor. 2. 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 The patient is followed in clinic with regular evaluation. 3. Thrombocytopenia with a platelet count of 71,000. The patient denies recent bleeding or bruising. Thrombocytopenia is stable at this time. 4. New-onset atrial fibrillation, in need of anticoagulation. We would recommend full-dose of Eliquis 5 mg p.o. b.i.d. 5. We will continue to follow closely. The above reflects the history, exam, assessment, and plan of Dr. Bhakta. Dictated by KENDRA Mcconnell for Amy Bhakta MD cc: KENDRA Mcconnell MD I have seen and examined the patient and the above note reflects my history, exam, assessment and plan. Amy Bhakta MD [facility]OSPITALJimmy
[2019-03-31] MEDS: LIPITOR PO SCH (20:21)
[2019-04-01] MEDS: SYNTHROID PO SCH (06:31)
[2019-04-01 08:10] LABS: EOS# 0.08 X1000 (0.0-0.7); EOS% 1.4 % (0.0-10.0); HEMATOCRIT 29.7 % (42.0-52.0); HEMOGLOBIN 8.9 g/dL (14.0-18.0); IMM GRAN# 0.02 X1000 (0.0-0.04); IMM GRAN% 0.4 % (0.0-0.5); LYMPH# 0.59 X1000 (1.2-3.4); LYMPH% 10.6 % (20.5-51.1); MCH 32.2 PG (27-31); MCV 107.6 FL (81-99); MONO# 0.71 X1000 (0.11-0.59); MONO% 12.7 % (1.7-9.3); MPV 11.2 FL (7.4-10.4); NEUT# 4.17 X1000 (1.4-6.5); NEUT% 74.9 % (42.2-75.2); PLT 82 X1000 (130-400); RBC 2.76 XMIL (4.7-6.1); RDW 13.4 % (11.5-14.5); WBC 5.57 X1000 (4.8-10.8)
[2019-04-01 08:14] LABS: BANDS 4 % (0-1); EOS 2 % (1-10); LYMPHS 6 % (21-51); MONO 8 % (1-9); SEGS 76 % (42-75)
[2019-04-01 08:15] LABS: AGAP 11; BUN 31 mg/dL (8-22); CHLORIDE 103 mmol/L (98-107); GLUCOSE 113 mg/dL (70-104); POTASSIUM 4.1 mmol/L (3.5-5.1); SODIUM 140 mmol/L (136-145); TCO2 26 mmol/L (25-35)
[2019-04-01 08:16] LABS: CALCIUM 9.1 mg/dL (8.8-10.2); COSMO 287; CREATININE 0.8 mg/dL (0.7-1.2); ESTIMATED GFR > 60; IRON SATURATION 19 %; TIBC 185 ug/dL; TOTAL IRON 35 ug/dL (53-167); UNBOUND IRON 150 ug/dL (112-346)
[2019-04-01 08:28] LABS: FERRITIN 1131 ng/mL (30-400)
[2019-04-01 08:41] VITALS: BP 130/69
[2019-04-01] MEDS ORDERED: LASIX PO SCH (09:00)
[2019-04-01] MEDS: ASPIRIN PO SCH (09:07)
[2019-04-01] MEDS: BUSPAR PO SCH (09:07)
[2019-04-01] MEDS: FERROUS SULFATE PO SCH (09:08)
[2019-04-01] MEDS: COZAAR PO SCH (09:08)
[2019-04-01] MEDS: LOPRESSOR PO SCH (09:08)
[2019-04-01] MEDS: ZINC SULFATE PO SCH (09:10)
[2019-04-01] MEDS: VITAMIN B-12 PO SCH (09:10)
[2019-04-01] MEDS: PRILOSEC PO SCH (09:10)
[2019-04-01] MEDS: VITAMIN E PO SCH (09:10)
[2019-04-01] MEDS: CORDARONE PO SCH (09:27)
--- NOTE | 2019-04-01 12:42 | CARDIOLOGY PROGRESS NOTE ---
DATE: 04/01/2019 SUBJECTIVE: Mr. Christensen is not having any orthopnea. PHYSICAL EXAMINATION: Vital signs: he is afebrile, heart rate 64, blood pressure 130/69. General: He is in no acute distress. Cardiovascular: He is in an irregularly irregular rhythm. It is rate controlled, appears to be in atrial fibrillation based on his monitor. He has no lower extremity edema. Chest: relatively clear. No increased work of breathing. Abdomen: soft, nontender. PERTINENT DATA: His chest x-ray performed yesterday shows improvement in his overall lung films. His lab data shows a white count of 5.6, hematocrit 29, platelet count 82,000. Sodium 140, potassium 4.1, his BUN is 31, creatinine is 0.8 [place] [address], [place] it [place] [address]. ASSESSMENT: Mr. Christensen is an 83-year-old gentleman with new onset atrial fibrillation, presenting in heart failure. PLAN: Overall, his volume status appears improved. 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 His rate is better controlled. He is having periodic bouts of atrial fibrillation and sinus in the more recent days of the hospitalization. At this point, I would continue him on the amiodarone, continue him on current medication adjustments which include losartan, Toprol as well as amiodarone. We have added a diuretic to his regimen which is new. He is to follow up with Dr. Joiner later on. We can likely consider cardioversion in the future plus or minus an ischemia evaluation based on his recovery of his EF. cc: Perry Sagastume MD
--- NOTE | 2019-04-01 18:43 | DISCHARGE SUMMARY ---
ADMISSION DATE: 03/28/2019 DISCHARGE DATE: 04/01/2019 PRIMARY CARE PHYSICIAN: Dr. Andrew. ADMISSION DIAGNOSIS: 1. New onset atrial fibrillation. 2. Hypomagnesemia. 3. Elevated liver function test. 4. History of congestive heart failure. DISCHARGE DIAGNOSIS: 1. New onset of atrial fibrillation with new reduction in left ventricular systolic function. 2. Systolic dysfunction of congestive heart failure with low ejection fraction. 3. Thrombocytopenia. 4. History of a abdominal aortic aneurysm. 5. History of myelodysplastic syndrome. 6. History of cerebrovascular accident. 7. Prostate and skin cancer history of. 8. History of coronary artery disease and hyperlipidemia. SUMMARY OF FINDINGS: This is an 83-year-old male who presented to the emergency room via EMS after he was seen in his primary care physician's clinic and found to be tachycardic and dyspneic on exertion, was sent to the emergency room for evaluation. When he arrived he showed signs of atrial flutter at 145 with a wide QRS and a known left bundle branch block. Was given 15 mg of Cardizem. Heart rate decreased to 103. He was admitted, placed on O2, checked a echocardiogram on 03/28/2019 that showed an ejection fraction of 25% with a normal left ventricular chamber size. We consulted Cardiology. We consulted Hematology-Oncology for his myelodysplastic syndrome and it is now felt that he can safely be discharged home. DISCHARGE MEDICATIONS: Include amiodarone 400 mg p.o. b.i.d., Eliquis 2.5 mg p.o. b.i.d., aspirin 81 mg p.o. daily, atorvastatin 40 mg p.o. at bedtime, BuSpar 5 mg p.o. daily, vitamin B12 1000 mcg p.o. daily, Lasix 40 mg p.o. daily, iron 1 tablet p.o. daily, Synthroid 50 mcg p.o. daily, losartan 50 mg p.o. daily, metoprolol 50 mg p.o. b.i.d., omeprazole 40 mg p.o. daily, vitamin E 400 units p.o. daily, zinc 50 mg p.o. daily. FOLLOWUP: He will follow up with his primary care physician on 04/06/2019 at 10:45 a.m., with Cardiology on 05/02/2019 at 9:45 a.m. He will have home health equipment through [facility] [place]. All discharge instructions were reviewed with the patient and he verbalized understanding. TIME SPENT: 35 minutes. Dictated by KENDRA Thompson for Ammon Doran MD cc: MD Ammon Apple MD
[2019-04-01] MEDS ORDERED: ELIQUIS PO SCH (21:00)
--- NOTE | 2019-04-16 16:21 | PROVIDER DOCUMENTATION ---
This chart was entered by Frances Vance Scribe, acting as scribe for Manjeet Olivier MD. HPI-Cardiac General - General Chief Complaint: Abnormal Lab[s] Stated Complaint: ABNORMAL LABS Time Seen by Provider: 03/28/19 12:20 Source: patient, family (), RN/MD, EMS Allergies/Adverse Reactions: Patient Allergies Allergy/AdvReac Type Severity Reaction Status Date / Time Sulfa (Sulfonamide Allergy Severe Unknown Verified 09/18/17 15:24 Antibiotics) Home Medications: Home Medication List Medication Instructions Recorded Confirmed Last Taken Type ATORVAstatin [Lipitor] 40 mg PO QHS 03/09/14 03/28/19 10/18/16 History Buspirone [Buspar] 5 mg PO DAILY 03/09/14 03/28/19 10/18/16 History Levothyroxine [Synthroid] 50 microgm PO DAILY 03/09/14 03/28/19 10/18/16 History Omeprazole 40 mg PO DAILY 11/28/15 03/28/19 10/09/16 History Aspirin 81 mg PO DAILY 03/28/19 03/28/19 Unknown History Cyanocobalamin (Vitamin B-12) 1,000 mcg PO DAILY 03/28/19 03/28/19 Unknown History [B-12] Iron 1 tab PO DAILY 03/28/19 03/28/19 Unknown History Losartan [Cozaar] 50 mg PO DAILY 03/28/19 03/28/19 Unknown History Vitamin E 400 units PO DAILY 03/28/19 03/28/19 Unknown History Zinc 50 mg PO DAILY 03/28/19 03/28/19 Unknown History Amiodarone [Cordarone] 400 mg PO BID #120 tab 04/01/19 Unknown Rx Apixaban [Eliquis] 2.5 mg PO BID #120 tab 04/01/19 Unknown Rx Furosemide [Lasix] 40 mg PO DAILY #90 tab 04/01/19 Unknown Rx Metoprolol [Lopressor] 50 mg PO BID #120 tab 04/01/19 Unknown Rx - History of Present Illness-Cardiac Nature of Presenting Problem: 83 yowm presents to ed w/disk recoater ems w/cc ems sts pt was seen at clinic in [place] this am and was taken to er via ems for abn labs, pt h&h was 06/02, tachycardia and dyspnea on ext. pt denies blood loss, pt sts had dark/bloody stool few months ago that has resolved. pt was put on macrobid 1 wk ago, unsure why. pt sts had bypass w/grafting, stents and valve replacement in [place] 19 yrs ago. pt is a&ox3, nontoxic in appearance and sts has no pain. med list and allergy list in room. denies cp, abd pain and fever. pt sts to rn that he has fallen in last month, denies hitting head. 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 had lumabr spine sx in 2017. unsure of anticoagulants. Quality of Pain: reports: none Onset/Duration: just prior to arrival Timing: still present Context/Activities at Onset: reports: none Modifying Factors: improves with: nothing Palpitation Quality: irregular (tachycardia) History of arrythmia: reports: none Associated Symptoms: reports: denies symptoms Review of Systems - Adult - REVIEW OF SYSTEMS - ADULT Constitutional: reports: no symptoms reported. denies: fever, fatique, night sweats Eyes: reports: no symptoms reported. denies: decreased vision, blurred vision, double vision Ears, Nose, Mouth & Throat: reports: no symptoms reported Cardiovascular: reports: see HPI, irregular heart rate (tachycardia). denies: chest pain, orthopnea, palpitations, syncope Respiratory: reports: see HPI, dyspnea on exertion. denies: hemoptysis, pleurisy, wheezing Gastrointestinal: reports: no symptoms reported, other (pt has hx of dark/bloody stools but none recently). denies: hematemesis, rectal bleeding Genitourinary: reports: no symptoms reported. denies: hematuria Musculoskeletal: reports: no symptoms reported Integumentary: reports: no symptoms reported Neurological: reports: see HPI, loss of balance (has fallen in last month but denies head injury). denies: dizziness/vertigo, slurred speech, syncope Psychiatric: reports: no symptoms reported Endocrine: reports: no symptoms reported Hematologic/Lymphatic: reports: no symptoms reported Allergic/Immunologic: reports: no symptoms reported All Other Systems: Reviewed and Negative Past History - Adult - PAST MEDICAL HISTORY-ADULT Review of Records: reports: Old Records Reviewed, Nursing Assessment Review, Med ications Reviewed, Social history reviewed & non-contributory. Major Childhood Illnesses: reports: denies history Cardiovascular: reports: aortic disease, CHF, HTN Respiratory: reports: denies history Gastrointestinal: reports: denies history Obstetrical/Gynecological: reports: denies history Genitourinary: reports: prostate cancer Musculoskeletal: reports: denies history Neurological: reports: CVA Endocrine/Immune: reports: thyroid disorder Other Conditions: reports: other cancer (skin) - PRIOR SURGERIES/PROCEDURES Surgical/Procedure History: reports: CABG, cardiac stent, hernia repair, joint replacement (bilateral hips), other - PRIOR HOSPITALIZATIONS Prior Hospitalizations: reports: for other non-related - IMMUNIZATION STATUS Childhood Immunizations: See Nurse Assessment Flu Vaccine: See Nurse Assessment - FAMILY HISTORY Family History: reviewed, not pertinent - SOCIAL HISTORY Smoking: non-smoker Substance Use: alcohol Alcohol Use Frequency: every day (wine) Physical Exam-General - PHYSICAL EXAM-ADULT Initial Vital Signs Reviewed: Yes - CONSTITUTIONAL General Appearance: appears well, alert, no apparent distress, thin. negative: lethargic, slow to respond, obtunded, combative - EYES Eyes: PERRL/EOMI, pink conjunctivae - HEAD, EARS, NOSE, MOUTH & THROAT HENMT: normocephalic/atraumatic, moist mucous membranes, normal ENT inspection - NECK Neck: full range of motion, supple, normal inspection - RESPIRATORY Respiratory: chest non-tender, lungs clear, normal breath sounds, no pleuratic chest pain, no respiratory distress, no accessory muscle use. negative: respiratory distress, decreased breath sounds, accessory muscle use, crackles, wheezing - CARDIOVASCULAR Cardiovascular: normal peripheral pulses, no edema, no JVD, no murmur, tachycardia, other (pt rhythm changed to possibly afib while in room w/gallop but changed back in less than 1 min). negative: regular rate, rhythm, JVD, bradycardia - GASTROINTESTINAL (ABDOMEN) Abdominal Exam: normal bowel sounds, non tender, soft - LYMPHATIC Lymphatic: no adenopathy - MUSCULOSKELETAL Back Exam: normal inspection, no CVA tenderness, no vertebral tenderness Extremity: normal range of motion, non-tender, normal inspection Peripheral Pulses: radial (R): 2+, radial (L): 2+ - SKIN Integumentary: normal color, normal turgor, warm/dry, other (pt has various bruises on bilat arms). negative: abrasion(s), diaphoresis, rash, warm - NEUROLOGIC Neurologic: grossly normal, no motor/sensory deficits - PSYCHIATRIC Psych/Mental Status: normal mood/affect, normal thought content, normal thought process, oriented x 3 Progress - PLAN OF CARE/RESULTS Progress/Plan/Lab Results: Orders Category Date Time Status Admit - [facility] Routine AdmDCTranf 03/28/19 15:48 Active Activity - Strict Bedrest EVERY SHIFT NURSING Care 03/28/19 15:48 Active Apply Mechanical Device [QM] ORDERED Care 03/28/19 15:48 Active Intake and Output-Strict Q 8-HR ASSESS Care 03/28/19 15:48 Active Update & Confirm Home Medicati ROUTINE Care 03/28/19 15:48 Completed Vital Signs Order Q 4-HR ASSESS Care 03/28/19 15:48 Completed Z-Document. for Tele Applied ORDERED Care 03/28/19 15:48 Completed Heart Healthy Diet Diet 03/28/19 15:48 Completed CHEST-1 VIEW [RAD] Stat Exams 03/28/19 12:37 Completed BASIC METABOLIC PANEL [CHEM] Routine Lab 03/29/19 06:57 Completed CBC WITH DIFF [HEME] Routine Lab 03/29/19 06:57 Completed CBC WITH DIFF [HEME] Stat Lab 03/28/19 12:40 Completed COMPREHENSIVE METABOLIC PANEL [CHEM] Stat Lab 03/28/19 12:40 Completed D-DIMER [COAG] Stat Lab 03/28/19 12:40 Completed MAGNESIUM [CHEM] Routine Lab 03/29/19 06:57 Completed MAGNESIUM [CHEM] Stat Lab 03/28/19 12:40 Completed PRO B-NATRIURETIC PEPTIDE Stat Lab 03/28/19 12:40 Completed PT [PROTIME WITH INR] [COAG] Stat Lab 03/28/19 12:40 Completed T4 Stat Lab 03/28/19 12:40 Completed TROPONIN T Stat Lab 03/28/19 12:40 Completed TSH Stat Lab 03/28/19 12:40 Completed URINALYSIS W/POSS RFLX CULT [URINALYSIS] Stat Lab 03/28/19 14:41 Completed 0.9% Sodium Chloride Inj [Ns] 1,000 ml Med 03/28/19 12:42 Discontinued .ROUTE As directed Acetaminophen [Tylenol] Med 03/28/19 15:48 Discontinued 650 mg PO Q6H PRN PRN Diltiazem [Cardizem] Med 03/28/19 12:36 Discontinued 15 mg IV NOW ONE Diltiazem [Cardizem] Med 03/28/19 20:00 Discontinued 30 mg PO Q6HR Magnesium Sulfate 4 gm/S.w.i. [Magnesium Sulfate 4 gm/S Med 03/28/19 13:37 Discontinued .w.i] 4 gm in 100 ml IV NOW Ondansetron [Zofran] Med 03/28/19 15:48 Discontinued 4 mg IV Q4H PRN PRN EKG [EKG] Stat Ther 03/28/19 12:27 Draft EKG [EKG] Stat Ther 03/28/19 14:01 Draft Echo Spec/Color Doppler Routine Ther 03/28/19 15:48 Completed Transfer/Admit Order [TRANSFER] Routine Transfer 03/28/19 14:03 Completed Result Diagrams: 04/01/19 07:25 04/01/19 07:25 - REASSESSMENT Reassessment #1 Time Reassessed: 13:09 Status: improving (post cardizem iv, pt HR is 73. no dyspnea.) Reassessment #2 Time Reassessed: 13:34 Status: other (pt magnesium is 0.8, pt HR went up upon movement 109-115) - EKG 1 Time of EKG reading by physician:: 12:27 EKG Read and Signed by:: Manjeet Olivier EKG Interpretation (*Must complete 3 of following elements*): Abnormal Rate: 145 Rhythm: Wide qrs tachycardia [place]: left QRS: LBB 2 Time of EKG reading by physician:: 12:50 EKG Read and Signed by:: Manjeet Olivier EKG Interpretation (*Must complete 3 of following elements*): Abnormal Rate: 73 Rhythm: NSR [place]: left QRS: LBB [place] Interval: normal ST Wave: normal Prior EKG Comparison: changes noted Comments: post cardizem iv 3 Time of EKG reading by physician:: 13:37 EKG Read and Signed by:: Manjeet Olivier EKG Interpretation (*Must complete 3 of following elements*): Abnormal Rate: 99 Rhythm: Undetermined rhythm [place]: left QRS: LBB ST Wave: normal - XRAY 1 XRAY: Bilateral XRAY Study: Chest Impression: Abnormal, See EMR Report (EXAM: CHEST-1 VIEW 03/28/2019 HISTORY: tachycardia, dyspnea TECHNIQUE: AP portable at 1251 COMMENT: The inspiration is suboptimal. There is bibasilar platelike atelectasis. There is apparent pleural fluid on the left if not on the right. The latter may have diminished slightly since 03/24/2019. IMPRESSION: Poor inspiration. Bibasilar atelectasis. Left pleural effusion. Electronically signed by Randell Tran 03/28/2019 1:05 PM) - CONSULTS/PCP/HOSPITALIST Notification #1 *Consult/PCP/Hospitalist*: Laure for Dr. Hinojosa Time Discussed: 13:58 Consult Disposition: Admit Departure - Departure Date of Disposition Decision: 03/28/19 Time of Disposition Decision: 15:30 DIAGNOSIS: Hypomagnesemia, Atrial fibrillation Disposition: ADMITTED INPATIENT 09 Certified Medical Emergency: Emergent Condition: Stable - Critical Care Note This patient required my direct & personal management of CC.: No Attestation - Physician/ LAURA Attestation Patient care was provided by Advanced Practice Provider:: No The physician spent face to face time with patient:: Yes Advanced Practice Provider documentation review:: Supervising physician onsite and consulted in the evaluation and care of this patient. The physician did have a face to face encounter with the patient. This chart was documented by the indicated scribe, (Frances Vance Scribe) and accurately reflects the services I performed and decisions made by me, Manjeet Olivier MD, as attested by the provider's signature.
== END 2019-04-01 14:42 | disposition home or self-care (01) | DRG 308 ==
LOC: SUPCPDRO → ED 12:15 → SUATTDRO 14:43 → 2N 14:43
PROVIDERS: ATTEND Internal Medicine

== ENCOUNTER 2019-04-19 14:10 | Inpatient (IN) ==
--- NOTE | 2019-04-19 14:48 | PROVIDER DOCUMENTATION ---
HPI-Neurological Disorder - General Chief Complaint: Weakness Stated Complaint: stroke like sx Time Seen by Provider: 04/19/19 14:37 Source: patient, family Allergies/Adverse Reactions: Patient Allergies Allergy/AdvReac Type Severity Reaction Status Date / Time Sulfa (Sulfonamide Allergy Severe Unknown Verified 04/19/19 14:46 Antibiotics) Home Medications: Home Medication List Medication Instructions Recorded Confirmed Last Taken Type ATORVAstatin [Lipitor] 40 mg PO QHS 03/09/14 04/19/19 04/18/19 20:00 History Buspirone [Buspar] 5 mg PO DAILY 03/09/14 04/19/19 04/18/19 08:00 History Levothyroxine [Synthroid] 50 microgm PO DAILY 03/09/14 04/19/19 04/18/19 08:00 History Omeprazole 40 mg PO DAILY 11/28/15 04/19/19 04/18/19 08:00 History Aspirin 81 mg PO DAILY 03/28/19 04/19/19 04/18/19 08:00 History Cyanocobalamin (Vitamin B-12) 1,000 mcg PO DAILY 03/28/19 04/19/19 04/18/19 08:00 History [B-12] Iron 1 tab PO DAILY 03/28/19 04/19/19 04/18/19 08:00 History Losartan [Cozaar] 50 mg PO DAILY 03/28/19 04/19/19 04/18/19 08:00 History Vitamin E 400 units PO DAILY 03/28/19 04/19/19 04/18/19 08:00 History Zinc 50 mg PO DAILY 03/28/19 04/19/19 04/18/19 08:00 History Amiodarone [Cordarone] 400 mg PO BID #120 tab 04/01/19 04/19/19 04/18/19 20:00 Rx Apixaban [Eliquis] 2.5 mg PO BID #120 tab 04/01/19 04/19/19 04/18/19 20:00 Rx Furosemide [Lasix] 40 mg PO DAILY #90 tab 04/01/19 04/19/19 04/18/19 08:00 Rx Metoprolol [Lopressor] 50 mg PO BID #120 tab 04/01/19 04/19/19 04/18/19 20:00 Rx - History of Present Illness-Neuro Nature of Presenting Problem: 83 yr old M, hx of atrial fibrillation, CVA, CABG, recent dx of HF, presents with the complaint of "I think I had a stroke". He reports sudden onset left arm tingling and weakness, as well as visual hallucinations. The pt was recently hospitalized and discharged at the end of March, and the family notes that he has seemed increasingly weaker and unlike himself since discharge. The notes that he has had noticeable trouble formulating words with 'r' and 's' over the past few weeks, though no acute worsening this morning. This morning, the pt went to use his left arm to grasp his walker to assist him in standing, and he was unable to due to sudden onset of weakness of the left arm. The and son also both note that he began seeing thing, like bugs on the floor, and was attempting to feed a cat that was not there. They presented to the ED via EMS shortly thereafter. New weakness or altered sensation location:: reports: LUE Gait Baseline: uses a walker Similar Symptoms Previously?: No Review of Systems - Adult - REVIEW OF SYSTEMS - ADULT ROS:: ROS per family Constitutional: reports: no symptoms reported Eyes: reports: no symptoms reported Ears, Nose, Mouth & Throat: reports: no symptoms reported Cardiovascular: reports: no symptoms reported Respiratory: reports: shortness of breath Gastrointestinal: reports: no symptoms reported Musculoskeletal: reports: no symptoms reported Neurological: reports: loss of balance, slurred speech Psychiatric: reports: no symptoms reported Hematologic/Lymphatic: reports: easy bruising Past History - Adult - PAST MEDICAL HISTORY-ADULT Review of Records: reports: Old Records Reviewed, Nursing Assessment Review, Medications Reviewed Major Childhood Illnesses: reports: denies history Cardiovascular: reports: aortic disease, CHF, HTN Respiratory: reports: denies history Gastrointestinal: reports: denies history Obstetrical/Gynecological: reports: denies history Genitourinary: reports: prostate cancer Musculoskeletal: reports: denies history Neurological: reports: CVA Endocrine/Immune: reports: thyroid disorder Other Conditions: reports: denies history - PRIOR SURGERIES/PROCEDURES Surgical/Procedure History: reports: hernia repair, joint replacement (bilateral hips) - PRIOR HOSPITALIZATIONS Prior Hospitalizations: reports: for other non-related - IMMUNIZATION STATUS Childhood Immunizations: See Nurse Assessment Flu Vaccine: See Nurse Assessment - FAMILY HISTORY Family History: reviewed, not pertinent Physical Exam- Neurological - Physical Exam-Neuro Initial Vital Signs Reviewed: Yes General Appearance: alert, thin Eye Exam: bilateral eye: EOMI HENMT: normocephalic/atraumatic, moist mucous membranes Head Injury: no evidence of injury Respiratory: chest non-tender, crackles Cardiovascular: regular rate, rhythm Abdominal Exam: non tender Extremity: no pedal edema, no calf tenderness head custodian Exam: normal hearing. negative: facial asymmetry Neurologic: focal weakness (LUE weakness, ptapparently suffered a fall a few days before presenting to the ED). negative: facial droop Integumentary: ecchymosis Psych/Mental Status: other (oriented to self, place) - Glascow Coma Scale Best Eye Response: (4) open spontaneously Best Verbal Response: (5) oriented Best Motor Response: (6) obeys commands Progress - PLAN OF CARE/RESULTS Progress/Plan/Lab Results: Vital Signs - 8 hr 04/19/19 14:28 04/19/19 14:29 Temperature 98.5 F Pulse Rate 72 79 Respiratory Rate 25 H 21 Blood Pressure 164/74 164/74 O2 Sat by Pulse Oximetry 86 L Laboratory Results - last 24 hr 04/19/19 04/19/19 04/19/19 14:32 14:43 14:43 WBC RBC Hgb Hct MCV MCH MCHC RDW Std Deviation Plt Count MPV Immature Gran % (Auto) Neut % (Auto) Lymph % (Auto) Worth % (Auto) Eos % (Auto) Baso % (Auto) Immature Gran # (Auto) Neut # (Auto) Lymph # (Auto) Worth # (Auto) Eos # (Auto) Baso # (Auto) PT 18.9 H INR 1.56 PTT (Actin FS) 31.8 Sodium Potassium Chloride Carbon Dioxide Anion Gap BUN Creatinine Estimated GFR/1.73 m2 BUN/Creatinine Ratio Glucose POC Glucose 92 Calculated Osmolality Calcium Magnesium Total Bilirubin AST ALT Alkaline Phosphatase Creatine Kinase Troponin T < 0.010 Bze-J-Gbzhvzukeff Pept Total Protein Albumin Globulin Albumin/Globulin Ratio 04/19/19 04/19/19 04/19/19 14:43 14:43 14:43 WBC 8.78 RBC 2.47 L Hgb 8.1 L Hct 26.1 L MCV 105.7 H MCH 32.8 H MCHC 31.0 L RDW Std Deviation 14.7 H Plt Count 67 L MPV 11.5 H Immature Gran % (Auto) 0.5 Neut % (Auto) 82.6 H Lymph % (Auto) 5.5 L Worth % (Auto) 11.2 H Eos % (Auto) 0.2 Baso % (Auto) 0.0 Immature Gran # (Auto) 0.04 Neut # (Auto) 7.26 H Lymph # (Auto) 0.48 L Worth # (Auto) 0.98 H Eos # (Auto) 0.02 Baso # (Auto) 0.00 PT INR PTT (Actin FS) Sodium 140 Potassium 4.0 Chloride 95 L Carbon Dioxide 25 Anion Gap 20 BUN 25 H Creatinine 1.1 Estimated GFR/1.73 m2 > 60 BUN/Creatinine Ratio 23 Glucose 104 POC Glucose Calculated Osmolality 284 Calcium 8.1 L Magnesium 1.1 L Total Bilirubin 1.46 H AST 20 ALT 11 Alkaline Phosphatase 91 Creatine Kinase 149 Troponin T Tmc-N-Oflzmvmffnp Pept > 70858 H Total Protein 5.9 L Albumin 3.6 Globulin 2.3 Albumin/Globulin Ratio 1.6 Orders Category Date Time Status Cardiac Monitoring DIRECTED Care 04/19/19 14:40 Active Macdonald Cath Insertion ORDERED Care 04/19/19 16:42 Active CHEST-2 VIEWS [RAD] Stat Exams 04/19/19 14:[address] HEAD W/O CONTRAST [CT] Stat Exams 04/19/19 14:44 Completed CBC WITH ELECTRONIC DIFF [HEME] Stat Lab 04/19/19 14:43 Completed CK PROFILE [SP CHEM] Stat Lab 04/19/19 14:43 Completed COMPREHENSIVE METABOLIC PANEL [CHEM] Stat Lab 04/19/19 14:43 Completed MAGNESIUM [CHEM] Stat Lab 04/19/19 14:43 Completed PROTIME WITH INR [COAG] Stat Lab 04/19/19 14:43 Completed PTT [COAG] Stat Lab 04/19/19 14:43 Completed TROPONIN T Stat Lab 04/19/19 14:43 Completed URINALYSIS W/POSS RFLX CULT [URINALYSIS] Stat Lab 04/19/19 16:40 Ordered URINE DRUG SCREEN Stat Lab 04/19/19 16:40 Ordered pro-bnp [PRO B-NATRIURETIC PEPTIDE] Stat Lab 04/19/19 14:43 Completed Furosemide [Lasix] Med 04/19/19 16:11 Discontinued 40 mg IV NOW ONE Magnesium Sulfate 2 gm/S.w.i. Med 04/19/19 16:12 Discontinued 2 gm in 50 ml IV NOW EKG [EKG] Stat Ther 04/19/19 14:25 Draft Transfer/Admit Order [TRANSFER] Routine Transfer 04/19/19 16:20 Ordered Spoke with pt and family - no acute findings on CT Head, worsening pulm edema on CXR. Discussed case with hospitalist who will accept for admission. Family is aware. Result Diagrams: 04/19/19 14:43 04/19/19 14:43 - EKG 1 Time of EKG reading by physician:: 14:38 EKG Read and Signed by:: Andrew Almonte EKG Interpretation (*Must complete 3 of following elements*): Abnormal Rate: 70 Rhythm: wide QRS [place]: left QRS: LBB Prior EKG Comparison: unchanged from prior (LBBB is stable from March 2019 EKG) - XRAY 1 XRAY Study: Chest Impression: See EMR Report (worsening pulm edema) - CT/MRI 1 CT Study: Head Impression: See EMR Report (no acute infarct) - CONSULTS/PCP/HOSPITALIST Notification #1 *Consult/PCP/Hospitalist*: Anastasiya Time Discussed: 16:10 Consult Disposition: Admit Departure - Departure Date of Disposition Decision: 04/19/19 Time of Disposition Decision: 16:18 DIAGNOSIS: Weakness, Altered mental status, Hypomagnesemia Disposition: ADMITTED INPATIENT Certified Medical Emergency: Emergent Condition: Fair - Critical Care Note This patient required my direct & personal management of CC.: No Attestation - Physician/ LAURA Attestation Patient care was provided by Advanced Practice Provider:: No The physician spent face to face time with patient:: Yes Advanced Practice Provider documentation review:: Supervising physician onsite and consulted in the evaluation and care of this patient. The physician did have a face to face encounter with the patient.
[2019-04-19 15:11] LABS: EOS# 0.02 X1000 (0.0-0.7); EOS% 0.2 % (0.0-10.0); HEMATOCRIT 26.1 % (42.0-52.0); HEMOGLOBIN 8.1 g/dL (14.0-18.0); IMM GRAN# 0.04 X1000 (0.0-0.04); IMM GRAN% 0.5 % (0.0-0.5); LYMPH# 0.48 X1000 (1.2-3.4); LYMPH% 5.5 % (20.5-51.1); MCH 32.8 PG (27-31); MCV 105.7 FL (81-99); MONO# 0.98 X1000 (0.11-0.59); MONO% 11.2 % (1.7-9.3); MPV 11.5 FL (7.4-10.4); NEUT# 7.26 X1000 (1.4-6.5); NEUT% 82.6 % (42.2-75.2); PLT 67 X1000 (130-400); RBC 2.47 XMIL (4.7-6.1); RDW 14.7 % (11.5-14.5); WBC 8.78 X1000 (4.8-10.8)
[2019-04-19 15:12] LABS: INR 1.56; PROTIME 18.9 Seconds (11.0-16.0); PTT 31.8 Seconds (22.3-41.8)
--- NOTE | 2019-04-19 15:12 | Diag Imaging Result Doc PS360 ---
EXAM: CHEST-2 VIEWS 04/19/2019 HISTORY: Weakness TECHNIQUE: PA and lateral chest COMMENT: There is an aortic valve prosthesis. There is generalized alveolar and interstitial opacity bilaterally which has worsened since 03/31/2019. There may be slightly less pleural fluid than on the previous study. IMPRESSION: Pleural effusions and pulmonary edema. Electronically signed by Randell Tran 04/19/2019 3:10 PM
--- NOTE | 2019-04-19 15:26 | Diag Imaging Result Doc PS360 ---
EXAM: CT HEAD W/O CONTRAST HISTORY: weakness TECHNIQUE: CT head without contrast COMPARISON: None. FINDINGS: No parenchymal hemorrhage. No epidural or subdural hematoma. No subarachnoid hemorrhage. There is atrophy. No mass identified on this noncontrasted exam. No hydrocephalus. No sinus opacification. IMPRESSION: 1.Atrophy 2.No hemorrhage This exam was performed using automated exposure control, adjustment of mA or kV according to patient size, and/or use of iterative reconstruction technique. Electronically signed by Gabriel Lomas 04/19/2019 3:24 PM
[2019-04-19 15:54] LABS: AGAP 20; ALB/GLOB RATIO 1.6; ALBUMIN 3.6 g/dL (3.5-5.0); ALKALINE PHOSPHATASE 91 U/L (32-122); BUN 25 mg/dL (8-22); CALCIUM 8.1 mg/dL (8.8-10.2); CHLORIDE 95 mmol/L (98-107); CK PROFILE 149 U/L (24-204); COSMO 284; CREATININE 1.1 mg/dL (0.7-1.2); ESTIMATED GFR > 60; GLUCOSE 104 mg/dL (70-104); GOT 20 U/L (10-34); GPT 11 U/L (10-44); MAGNESIUM 1.1 mg/dL (1.5-2.7); SODIUM 140 mmol/L (136-145); TCO2 25 mmol/L (25-35); TOTAL BILIRUBIN 1.46 mg/dL (0.20-1.00); TOTAL PROTEIN 5.9 g/dL (6.3-8.3)
[2019-04-19] MEDS ORDERED: LASIX IV ONE (16:11)
[2019-04-19] MEDS ORDERED: MAGNESIUM SULFATE 2 GM/S.W.I. 2 GM/50 ML IVPB IV ONE (16:12)
--- NOTE | 2019-04-19 16:35 | EKG Report ---
Test Performed on : 04/19/2019 2:25:20 PM Test Reason : ED. No order in [place] Blood Pressure : / mmHG Vent. Rate : 070 BPM Atrial Rate : 300 BPM P-R Int : 000 ms QRS Dur : 148 ms QT Int : 468 ms P-R-T Axes : 000 -54 133 degrees QTc Int : 505 ms Wide QRS rhythm. Left axis deviation Left bundle branch block Abnormal ECG When compared with ECG of 31-MAR-2019 07:11, Wide QRS rhythm. has replaced Atrial fibrillation. Unconfirmed Result
[2019-04-19 19:10] LABS: UR AMPHETAMINES QUAL NONE DETECTED (NONE DETECT); UR BARBITUATES QUAL NONE DETECTED (NONE DETECT); UR BENZODIAZEPIN QUAL NONE DETECTED (NONE DETECT); UR CANNABINOIDS QUAL NONE DETECTED (NONE DETECT); UR COCAINE QUAL NONE DETECTED (NONE DETECT); UR METHADONE QUAL NONE DETECTED (NONE DETECT); UR OPIATES QUAL NONE DETECTED (NONE DETECT); UR OXYCODONE QUAL NONE DETECTED (NONE DETECT); UR PCP QUAL NONE DETECTED (NONE DETECT); URINE SOURCE CATH
[2019-04-19 19:18] LABS: BILIRUBIN URINE NEGATIVE (NEGATIVE); BLOOD URINE LARGE (NEGATIVE); CLARITY CLEAR (CLEAR); COLOR AMBER; GLUCOSE URINE NEGATIVE (NEGATIVE); KETONE URINE TRACE mg/dL (NEGATIVE); LEUKOCYTES URINE NEGATIVE (NEGATIVE); NITRITE URINE NEGATIVE (NEGATIVE); PH URINE 5.5; PROTEIN URINE TRACE mg/dL (NEGATIVE); SP GRAVITY URINE 1.025; UROBILINOGEN URINE 0.2 EU/dL (0.2-1.0)
[2019-04-19 19:26] LABS: URINE EPITHELIAL CELLS <10 /HPF (<10); URINE RBC 20-40 /HPF (<10); URINE WBC <10 /HPF (<10)
[2019-04-19 19:27] LABS: URINE BACTERIA NEGATIVE /HFP; URINE CAST GRANULAR PRESENT /LPF; URINE CRYSTAL NONE SEEN /HPF; URINE YEAST NONE SEEN /HPF
--- NOTE | 2019-04-19 20:24 | HISTORY AND PHYSICAL ---
PRIMARY CARE PROVIDER: Dr. Claudio Andrew. CHIEF COMPLAINT: Left hand numbness, shortness of breath, chills. HISTORY OF PRESENT ILLNESS: Mr. Christensen is an 83-year-old male, who carries a past medical history of AAA, MDS, CHF, hypertension, CVA, hypothyroidism, skin cancer, prostate cancer, coronary artery disease, hyperlipidemia, atrial fibrillation, who was recently discharged from our service for new onset atrial fibrillation and hypomagnesium. Patient reported to the ED after experiencing left hand numbness while at home. Per the , she believes it started today. He was also reporting some shortness of breath. She believes it started today. He did have some slight lower extremity pitting edema that she also believes started today. The patient was not a very good historian, nor his . She states that he has fallen a couple of times since his discharge. He has bruising all over his upper extremities, his right shoulder, as well as on his back; however, I did not assess these. The patient was on a bed barber. He had a head CT in the ED that did not show any acute changes. He had a proBNP greater than 35,000, and a chest x-ray that showed pulmonary edema. He also had a magnesium level of 1.1. He was given a dose of IV Lasix and given 2 g of magnesium sulfate and placed on a nonrebreather secondary to hypoxemia of 86, so he will be admitted to [facility] with a cardiology consult, and we will continue with IV diuresis. PAST MEDICAL HISTORY: 1. Atrial fibrillation. 2. Systolic congestive heart failure. 3. Abdominal aortic aneurysm. 4. MDS. 5. History of CVA. 6. Prostate and skin cancer. 7. Coronary artery disease. 8. Hyperlipidemia. PAST SURGICAL HISTORY: 1. CABG. 2. Aortic valve replacement. 3. Heart stents. 4. Hernia repair. 5. Bilateral hip replacement. 6. Lumbar surgery. FAMILY HISTORY: Reviewed and noncontributory. SOCIAL HISTORY: He lives with his . She is in a wheelchair. He uses a walker. ALLERGIES: Sulfa. HOME MEDICATIONS: 1. Amiodarone 400 mg p.o. b.i.d.; however, I believe this should probably have been weaned down to daily, per his last admission. 2. Eliquis 2.5 mg p.o. b.i.d. 3. Aspirin 81 mg p.o. daily. 4. Lipitor 40 mg p.o. at bedtime. 5. BuSpar 5 mg p.o. daily. 6. B12 1000 mcg p.o. daily. 7. Lasix 40 mg p.o. daily. 8. Iron 1 tablet p.o. daily. 9. Synthroid 50 mcg p.o. daily. 10. Cozaar 50 mg p.o. daily. 11. Lopressor 50 mg p.o. b.i.d. 12. Prilosec 40 mg p.o. daily. 13. Vitamin E 4000 units p.o. daily. 14. Zinc 50 mg p.o. daily. REVIEW OF SYSTEMS: A 12 point review of systems was completed and negative except for those mentioned in HPI. PHYSICAL EXAMINATION: VITAL SIGNS: Temperature is 98.5 degrees, heart rate 79, respiratory rate is 21, blood pressure 164/74, initially 86% on 6 L. He has now been changed over to a nonrebreather. GENERAL: Mr. Christensen is an 83-year-old gentleman who is lying on the bed on a nonrebreather, in no acute distress. HEENT: Atraumatic, normocephalic. PERRL. NECK: Supple. Trachea midline. CARDIOVASCULAR: S1, S2 appreciated. No murmurs, gallops, rubs noted. RESPIRATORY: Lung sounds clear bilaterally, decreased in the bases. GI: Soft, nontender, nondistended. Positive bowel sounds, 4 quadrants. EXTREMITIES: There is some trace pedal edema, pitting. SKIN: He has bruises to his upper extremities, his right shoulder. Per his 's report, he is bruised all over his back secondary to falling. NEUROLOGIC: Could not appreciate any focal deficits. He has full use of his left hand now. There is no numbness. He is able to move his arm. He can squeeze my hand. DIAGNOSTIC DATA: Head CT: Atrophy, no hemorrhage. Chest x-ray: Pleural effusions and pulmonary edema. LABORATORY DATA: White count 8, hemoglobin and hematocrit 8 and 26, platelet count is 67,000. Sodium 140, potassium 4, BUN 25, creatinine 1.1, blood glucose is 104, magnesium 1.1, T bilirubin 1.46. ProBNP greater than 35,000. ASSESSMENT AND PLAN: 1. Acute systolic heart failure exacerbation. We will continue with intravenous diuresis, strict inputs and outputs, daily weights. Consult Cardiology. His most recant recent echocardiogram was on 03/28/2019. That showed an ejection fraction of 25% with global hypokinesis and paradoxical septal wall motion. 2. Left hand numbness. Head CT does not show any cerebrovascular accident. He is not having any numbness now, and he is able to move his arm now and squeeze my hand. 3. Hypomagnesemia. We will replenish it with intravenous magnesium. Recheck his level at 1900. 4. Atrial fibrillation. We will continue with his amiodarone. 5. Hypoxemia. We will continue with nonrebreather, wean as appropriate. 6. Coronary artery disease, status post coronary artery bypass grafting and stenting, and aortic valve replacement. Aware. 7. Abdominal aortic aneurysm. 8. Hypothyroidism. Continue Synthroid. 9. Hypertension. Continue home medications. 10. Myelodysplastic syndrome. Continue to follow his blood counts. 11. Further recommendations to follow physician evaluation, laboratory and diagnostic data. Dictated by KENDRA Baugh for Ammon Doran MD cc: MD Dr. Jamie Ventura MD
[2019-04-19] MEDS: CORDARONE PO SCH (22:23)
[2019-04-19] MEDS: ELIQUIS PO SCH (22:23)
[2019-04-19] MEDS: LIPITOR PO SCH (22:23)
[2019-04-19] MEDS: LASIX IV SCH (22:59)
[2019-04-19] MEDS: LOPRESSOR PO SCH (22:59)
[2019-04-20 00:14] LABS: BASO# 0.01 X1000 (0.0-0.2); BASO% 0.1 % (0.0-0.8); HEMATOCRIT 25.5 % (42.0-52.0); HEMOGLOBIN 7.9 g/dL (14.0-18.0); IMM GRAN# 0.05 X1000 (0.0-0.04); IMM GRAN% 0.6 % (0.0-0.5); LYMPH# 0.45 X1000 (1.2-3.4); MCH 32.9 PG (27-31); MCV 106.3 FL (81-99); MONO# 0.88 X1000 (0.11-0.59); MONO% 9.8 % (1.7-9.3); MPV 11.2 FL (7.4-10.4); NEUT# 7.58 X1000 (1.4-6.5); NEUT% 84.5 % (42.2-75.2); PLT 65 X1000 (130-400); RDW 14.6 % (11.5-14.5); WBC 8.97 X1000 (4.8-10.8)
--- NOTE | 2019-04-20 00:28 | EKG Report ---
Test Performed on : 04/20/2019 00:22:27 AM Test Reason : Heart Failure Admission Blood Pressure : / mmHG Vent. Rate : 060 BPM Atrial Rate : 060 BPM P-R Int : 124 ms QRS Dur : 160 ms QT Int : 488 ms P-R-T Axes : -19 -38 132 degrees QTc Int : 488 ms Normal sinus rhythm. Left axis deviation Left bundle branch block Abnormal ECG When compared with ECG of 19-APR-2019 14:25, (Unconfirmed) Sinus rhythm. has replaced Wide QRS rhythm. Confirmed by Ismael GALLEGOS, Harshal Casas ([id number]) on 04/20/2019 10:19:22 PM
[2019-04-20] MEDS: SYNTHROID PO SCH (06:00)
[2019-04-20] MEDS: DUONEB (A & A) INH SCH ×4 (06:24→21:33)
[2019-04-20 06:51] LABS: AGAP 15; ALB/GLOB RATIO 1.9; ALBUMIN 3.7 g/dL (3.5-5.0); ALKALINE PHOSPHATASE 85 U/L (32-122); BUN 29 mg/dL (8-22); CALCIUM 8.2 mg/dL (8.8-10.2); CHLORIDE 98 mmol/L (98-107); COSMO 296; ESTIMATED GFR > 60; GLUCOSE 94 mg/dL (70-104); GOT 17 U/L (10-34); GPT 10 U/L (10-44); MAGNESIUM 1.7 mg/dL (1.5-2.7); POTASSIUM 3.6 mmol/L (3.5-5.1); SODIUM 146 mmol/L (136-145); TCO2 33 mmol/L (25-35); TOTAL PROTEIN 5.7 g/dL (6.3-8.3)
--- NOTE | 2019-04-20 07:28 | Diag Imaging Result Doc PS360 ---
EXAM: CHEST-PORTABLE HISTORY: CHF TECHNIQUE: Portable chest single view COMPARISON: 04/19/2019 FINDINGS: There are dense bilateral infiltrates. There is also basilar atelectasis and small pleural effusions. A heart valve has been replaced. IMPRESSION: Worsening bilateral infiltrates. Electronically signed by Gabriel Lomas 04/20/2019 7:25 AM
[2019-04-20] MEDS: LASIX IV SCH ×3 (07:36→20:16)
--- NOTE | 2019-04-20 08:47 | PROGRESS NOTE ---
DATE: 04/20/2019 SUBJECTIVE: This patient is lying in bed. He is having [id number] respiratory distress. He has been placing a nonrebreathing mask. His x-ray looks a bit worse compared with yesterday. It looks like we have a negative balance of 800 mL during the night. I will continue with IV Lasix, and I will wait for Cardiology's recommendations. OBJECTIVE: Vital Signs: Temperature 97.8 degrees, pulse 63, respiratory rate 18, blood pressure 157/57, and oxygen saturation 95% on a nonrebreathing mask. HEENT: Head normocephalic. No trauma. PERRLA. Neck: Supple. No JVD. Central trachea. Chest: Coarse breath sounds bilaterally with generalized crepitus. Abdomen: Soft and nontender. Generalized crepitus. He has a hematoma on his right shoulder. Nontender. Nondistended. No hepatosplenomegaly. Extremities: No edema. No clubbing. No cyanosis. Neurological: The patient is alert. He is following commands. He is answering my questions. He moves all 4 extremities. LABORATORY: Sodium 146, potassium 3.6, chloride 98, bicarbonate 33, BUN 29, creatinine 1, glucose 94, calcium 8.2, and magnesium 1.7. Troponin's are negative x3. ASSESSMENT AND PLAN: 1. Acute systolic heart failure exacerbation. We will continue with IV Lasix with strict in an outs. Cardiology consult. Most recent echocardiogram on 03/28/2019 showed a low ejection fraction at 25% with global hypokinesis, and paradoxical septal wall motion. It seems to be about the same compared with yesterday. I will wait for recommendations. 2. Left hand numbness, resolved. 3. Hypomagnesemia resolved. He has been already treated. 4. Bilateral pulmonary edema, likely due to congestive heart failure exacerbation. Continue with diuresis. So far, we have a negative balance of 800 mL. 5. Hypoxemia, with acute respiratory failure due to pulmonary edema. CHF. 6. Atrial fibrillation. At this moment, he is in sinus rhythm. We will monitor. Continue with medications. 7. History of coronary artery disease status post CABG and stenting, aortic valve replacement. Aware. He is on Eliquis. 8. Abdominal aortic aneurysm. Aware. 9. Hypothyroidism. Continue with Synthroid. 10. Hypertension. Continue home medications. 11. Myelodysplastic syndrome. We will continue to follow his blood counts. 12. Right clavicular fracture. This is new. As per the patient, he recently fell. He had some bruises at the right shoulder. 13. This patient is DNR level 1. He seems to have a poor prognosis given his age, current condition, and multiple comorbidities. cc: Ammon Doran MD
[2019-04-20] MEDS: CORDARONE PO SCH ×2 (08:49→20:16)
[2019-04-20] MEDS: ELIQUIS PO SCH ×2 (08:49→20:16)
[2019-04-20] MEDS: PRILOSEC PO SCH (08:49)
[2019-04-20] MEDS: BUSPAR PO SCH (08:49)
[2019-04-20] MEDS: COZAAR PO SCH (08:49)
[2019-04-20] MEDS: LOPRESSOR PO SCH ×4 (08:49→21:54)
[2019-04-20] MEDS: ASPIRIN PO SCH (08:50)
--- NOTE | 2019-04-20 13:11 | CARDIOLOGY CONSULTATION ---
DATE: 04/20/2019 REQUESTING PHYSICIAN: Hospitalist Service. REASON FOR CONSULTATION: Dyspnea and CHF. HISTORY: Mr. Christensen is a very unfortunate 83-year-old male who presented to the hospital yesterday 04/19 at about 2:30 in the afternoon with complaints of having increasing dyspnea, weakness, and also the noted that he was having difficulty grasping objects with his left hand. She was concerned about the possibility of stroke. Upon initial encounter, they did a 12 lead EKG that shows sinus rhythm with the left bundle branch block. There is a lot of artifact there. A head CT reported by Radiology, shows atrophy. No hemorrhage. Chest x-ray done at 2:51 in the afternoon shows pleural effusions with pulmonary edema. The subsequent x-ray done this morning showed worsening bilateral infiltrates. Initial proBNP level done in the ER was greater than 35,000, and this has been done twice. BUN and creatinine were 25 and 1.1. The patient has been given Lasix and admitted to the step- down cardiac unit 2nd floor for medical care. The patient is not in any pain. He is very lethargic and looking pale. and son are at the bedside. He has not complained of any pain. When I asked him, his main complaint was just weakness. His left hand is obviously a little weaker than the right. He just appears to be chronically ill with some respiratory difficulty. PAST MEDICAL HISTORY: His past history is positive for severe coronary heart disease. He has had previous stents and heart attacks in the past. He underwent coronary bypass surgery in 2013. He also underwent aortic valve replacement at the same time with a 19 mm Colt-Ruano pericardial valve. The patient presented to the hospital recently on 03/28 with paroxysmal atrial fibrillation, and at that time they documented a significant drop in his ejection fraction from a relatively normal echo reported by Dr. Joiner in April of 2018 when he found that his ejection fraction was 58% at this time down to the 25% range with atrial fibrillation. He has COPD. He has hypertension. The patient has had previous transient ischemic attacks in the past, and admitted to a hospital in [place] for that. Hypothyroidism. PAST SURGICAL HISTORY: In addition to the coronary bypass includes hip replacement. He has had a recent injection of cement to the spine last year after he suffered vertebral fractures. He has had hernia repair and bilateral hip replacement. FAMILY HISTORY: Really noncontributory. SOCIAL HISTORY: He has been to his for many years. He retired from [employer] in [place], [place]. He has been living in [place], [place], and since the year [address] [facility]. The patient has been walking with a walker since his recent hospital discharge. He is not a smoker. They have 4 children, the only son actually is in the room with him today. HOME MEDICATIONS: At the time of this visit, are as follows. He is on amiodarone 400 mg twice a day, apixaban 2.5 mg twice a day, aspirin 81 mg daily, atorvastatin 40 mg at bedtime. BuSpar 5 mg daily, cyanocobalamin 1000 mcg daily, furosemide 40 mg daily, iron 1 tablet daily, levothyroxine 50 mcg daily, losartan 50 mg daily, and metoprolol 50 twice a day, omeprazole 40 mg daily, vitamin E 400 units daily, zinc 50 mg units daily. ALLERGIES: Sulfa drugs. REVIEW OF SYSTEMS: Since his admission to the hospital in March, his functional capacity has deteriorated dramatically. He has not had any pains. He just suffered 2 falls at home recently. He has bruised his shoulder. Appetite is poor. He has lost weight. His weight now is down to 116 pounds. BMI is 19.3. PHYSICAL EXAMINATION: Vital signs: Blood pressure is 157/57, temperature 97.8 degrees, pulse 62, and respirations 18. He is chronically ill and pale looking in no distress. HEENT: No jugular venous distention. Chest: Reveals diminished breath sounds bilaterally. Heart: Sounds are distant regular I do not hear gallop or any significant murmur. Abdomen: Scaphoid and nontender. Extremities: Decreased pulses. No peripheral edema. Neurological: He has definite weakness in the left arm and the left hand to grasp. He is really lethargic. LABORATORY: Blood work today, sodium 146, potassium 3.6, BUN 29, and creatinine 1.0. AST and ALT normal. His hemoglobin 7.9 and hematocrit is 25.5. IMPRESSION: 1. Patient who presents with increasing lethargy, weakness of the left upper extremity, and possible transient ischemic attack/stroke. 2. Paroxysmal atrial fibrillation. 3. Chronic plus acute left ventricular systolic dysfunction with congestive heart failure. 4. Coronary heart disease. s/p CABG. 5. Status post aortic valve replacement. 6. Myelodysplastic syndrome, which is being managed by the Hematology group. 7. He has anemia and thrombocytopenia. 8. History of previous joint replacement arthritis. RECOMMENDATIONS: At this time, we will continue Lasix. We will probably cut down on the metoprolol medication and also on amiodarone. We will see how he does over the course of the next few days. His prognosis is really not good. The family has chosen a DNR 1 status for him. We will follow him along. cc: Florentino Holley MD MTDD
[2019-04-20 14:31] LABS: ALLEN TEST NO; BE 13.1 mmoll (-3.0-3.0); BLOOD TYPE ARTERIAL; HCO3-(ACT) 35.1 mmoll (20.0-26.0); O2(CT) 9.7 mL/dL (15.0-23.0); O2HB 91.7 % (95.0-99.0); PO2(98.6) 60 mmHg (60-100); SAMPLE BLOOD; SAO2 96.9 % (95.0-100.0); THB 7.5 g/dL (11.5-17.4); pH(98.6) 7.41 (7.35-7.45)
[2019-04-20 14:33] LABS: PCO2(98.6) 62 mmHg (35-45)
[2019-04-20 14:37] LABS: MODALITY NRB
[2019-04-20 16:34] LABS: BLOOD TYPE ARTERIAL; HCO3-(ACT) 34.5 mmoll (20.0-26.0); PO2(98.6) 146 mmHg (60-100); SAMPLE BLOOD; pH(98.6) 7.45 (7.35-7.45)
[2019-04-20 16:35] LABS: ALLEN TEST NO; BE 12.2 mmoll (-3.0-3.0); METHB 0.8 % (0.0-1.5); O2(CT) 10.4 mL/dL (15.0-23.0); O2HB 96.4 % (95.0-99.0); THB 7.4 g/dL (11.5-17.4)
[2019-04-20 16:36] LABS: MODALITY BI PAP; PCO2(98.6) 54 mmHg (35-45)
[2019-04-20] MEDS: MAXIPIME 1 GM in NS 50 ML IV SCH (20:16)
[2019-04-20] MEDS: LIPITOR PO SCH (20:16)
[2019-04-21] MEDS: DUONEB (A & A) INH SCH ×4 (03:47→19:49)
[2019-04-21 04:54] LABS: ALLEN TEST YES; BE 10.8 mmoll (-3.0-3.0); BLOOD TYPE ARTERIAL; HCO3-(ACT) 33.3 mmoll (20.0-26.0); O2HB 92.2 % (95.0-99.0); PO2(98.6) 63 mmHg (60-100); SAMPLE BLOOD; THB 9.2 g/dL (11.5-17.4); pH(98.6) 7.45 (7.35-7.45)
[2019-04-21 05:01] LABS: MODALITY BI PAP; PCO2(98.6) 52 mmHg (35-45)
--- NOTE | 2019-04-21 05:31 | ECHO REPORT ---
ORDER DATE: 04/20/2019 MEASUREMENTS: Septal thickness 1.1 and left ventricular internal diameter diastole 4.5. SUMMARY: 1. Technically difficult study due to limited acoustic window quality. 2. Aortic valve has been replaced with bioprosthesis which appears to open adequately on 2- dimensional images. Doppler of aortic valve not performed. Mild mitral annular calcification is demonstrated. Tricuspid valve without evidence of structural abnormality while pulmonic valve is not well demonstrated. There is mild tricuspid regurgitation. Aortic root is normal in size. 3. Normal left ventricular chamber size with borderline concentric left hypertrophy is demonstrated. Estimated left ventricular ejection fraction approximately 30 to 35% in the setting of global hypokinesis. Mild biatrial enlargement is demonstrated. Right atrium is mildly enlarged. Right ventricle is grossly normal in size. Right ventricular systolic function is grossly preserved. 4. No pericardial effusion. 5. Bilateral pleural effusions demonstrated. 6. Elevated central venous pressure is suggested based on appearance of inferior vena cava. cc: MD Florentino Gill MD
[2019-04-21] MEDS: LOPRESSOR PO SCH ×4 (05:33→21:18)
[2019-04-21] MEDS: SYNTHROID PO SCH ×2 (05:42→06:07)
[2019-04-21 06:18] LABS: HEMATOCRIT 24.1 % (42.0-52.0); HEMOGLOBIN 7.1 g/dL (14.0-18.0); IMM GRAN# 0.04 X1000 (0.0-0.04); IMM GRAN% 0.4 % (0.0-0.5); LYMPH# 0.28 X1000 (1.2-3.4); LYMPH% 2.7 % (20.5-51.1); MCH 31.6 PG (27-31); MCHC 29.5 g/dL (33-37); MCV 107.1 FL (81-99); MONO# 1.06 X1000 (0.11-0.59); MONO% 10.3 % (1.7-9.3); MPV 10.8 FL (7.4-10.4); NEUT# 8.89 X1000 (1.4-6.5); NEUT% 86.6 % (42.2-75.2); PLT 58 X1000 (130-400); RBC 2.25 XMIL (4.7-6.1); RDW 14.4 % (11.5-14.5); WBC 10.27 X1000 (4.8-10.8)
[2019-04-21 06:34] LABS: AGAP 16; BUN 33 mg/dL (8-22); CALCIUM 8.4 mg/dL (8.8-10.2); CHLORIDE 99 mmol/L (98-107); COSMO 298; CREATININE 1.1 mg/dL (0.7-1.2); ESTIMATED GFR > 60; GLUCOSE 93 mg/dL (70-104); POTASSIUM 3.1 mmol/L (3.5-5.1); SODIUM 146 mmol/L (136-145); TCO2 31 mmol/L (25-35)
--- NOTE | 2019-04-21 07:08 | Diag Imaging Result Doc PS360 ---
EXAM: CHEST-PORTABLE 04/21/2019 HISTORY: dyspnea TECHNIQUE: AP portable at 0536 COMMENT: There is pleural thickening and/or loculated effusion on the right. There is diffuse alveolar and interstitial opacity bilaterally. There is an aortic valve prosthesis. There are sternotomy wires. Compared to 04/20/2019 there has been no appreciable change. The pulmonary opacities are definitely worse than on 04/19/2019 and the pleural fluid collections are larger. IMPRESSION: Pulmonary edema/ARDS. Pleural effusions. Electronically signed by Randell Tran 04/21/2019 7:06 AM
[2019-04-21] MEDS ORDERED: KLOR-CON PO ONE (07:44)
[2019-04-21] MEDS: COZAAR PO SCH (08:40)
[2019-04-21] MEDS: PRILOSEC PO SCH (08:40)
[2019-04-21] MEDS: ELIQUIS PO SCH ×2 (08:40→21:19)
[2019-04-21] MEDS: ASPIRIN PO SCH (08:40)
[2019-04-21] MEDS: BUSPAR PO SCH (08:40)
[2019-04-21] MEDS: LASIX IV SCH ×2 (08:44→21:19)
[2019-04-21] MEDS: CLINIMIX E 4.25%-5% SOLUTION 1,000 ML IV SCH (08:48)
[2019-04-21] MEDS: CORDARONE PO SCH ×2 (08:55→21:19)
--- NOTE | 2019-04-21 09:13 | PROGRESS NOTE ---
DATE: 04/21/2019 SUBJECTIVE: This patient is lying comfortably in bed. He is not complaining of pain at this moment. He is sleepy, but arousable. He moves all 4 extremities with probably some weakness on his left upper extremity, though, and pain in his right shoulder due to probably recent fracture which is nondisplaced at the end of the clavicle. He is not eating too good, so I will start him on a low dose of Clinimix and I will continue with his p.o. diet. I will request an evaluation by Pulmonary Department since there is a possibility of ARDS and pneumonia. I have placed this patient on antibiotics and I already requested cultures. OBJECTIVE: Vital Signs: Temperature 98.3 degrees, pulse 50, respiratory rate 21, blood pressure 141/59, oxygen saturation 98 on the BiPAP machine. HEENT: Head normocephalic. No trauma. PERRLA. Neck: Supple. No JVD. No masses. Central trachea. Chest: Coarse breath sounds bilaterally with generalized crepitus. Abdomen: Soft, nontender, nondistended. No hepatosplenomegaly. Extremities: No edema, no clubbing, no cyanosis. Neurological: This patient is sleepy, but arousable. He is following commands. LABORATORY DATA: WBC 10.2, hemoglobin 7.1, hematocrit 24.1, platelets 58,000. Sodium 146, potassium 3.1, chloride 99, bicarbonate 31, BUN 33, creatinine 1.1, glucose 93, calcium 8.4. ASSESSMENT AND PLAN: 1. Acute systolic heart failure exacerbation. Continue with IV Lasix. So far we have to 2.1 L of negative balance, Cardiology Department following this patient. Recent echocardiogram showed an ejection fraction of 30 to 35 percent with global hypokinesis. We will continue with same management. 2. Left hand numbness. He is not complaining of any problem at this moment. 3. Hypokalemia. I will replace the potassium. 4. Bilateral pulmonary edema, likely due to congestive heart failure. Continue with diuresis. So far a negative balance 2.1 L. 5. Possible acute respiratory distress syndrome. I have requested an evaluation by Pulmonary Department. 6. Acute respiratory failure with hypoxemia. Continue with the BiPAP machine for now. Pulmonary Department consulted. 7. Atrial fibrillation. Will monitor. Continue with home medications. 8. History of coronary artery disease status post coronary artery bypass grafting and stenting, aortic valve replacement, aware. He is on Eliquis. 9. Abdominal aortic aneurysm, aware. 10. Hypothyroidism. Continue with Synthroid. 11. Hypertension. Continue with the same management. Stable. 12. Myelodysplastic syndrome. We will continue to monitor his blood count, his hemoglobin is 7.1 and platelet count dropped a little bit from 65,000 to 58,000. 13. Right clavicular fracture. This is basically new. As per the patient, he recently fell, he had some bruises on the right shoulder and pain. 14. This patient is DNR level 1. He has poor prognosis given his age, current condition and multiple comorbidities. 15. I have placed this patient on antibiotics. He has a CRP that is elevated. I am not sure if he has an underline infectious pulmonary process. cc: Ammon Doran MD
[2019-04-21] MEDS: MAXIPIME 1 GM in NS 50 ML IV SCH ×2 (10:10→21:19)
--- NOTE | 2019-04-21 21:09 | CONSULTATION ---
DATE OF CONSULTATION: 04/21/2019 REQUESTING PROVIDER: Dr. Ammon Hand. REASON FOR CONSULTATION: Pneumonia. HISTORY OF PRESENT ILLNESS: This is an 83-year-old male with a medical history of coronary artery disease, aortic stenosis, paroxysmal atrial fibrillation, COPD, hypertension, hyperlipidemia, hypothyroidism, prostate and skin cancer, myelodysplastic syndrome, abdominal aortic aneurysm, and systolic congestive heart failure. His last admission to our facility was from 03/28/2019 to 04/01/2019 with new-onset atrial fibrillation and acute on chronic congestive heart failure. He presented to the ER on 04/19/2019 with sudden onset of left arm tingling and weakness and visual hallucinations. Family suspected he may have had a stroke. Initial workup in the ER showed acute systolic congestive heart failure exacerbation. He has been admitted to [facility] for further evaluation and management. During this hospital stay, the patient's respiratory status kept declining, and he required non-rebreather since the evening of 04/19/2019, and from yesterday afternoon on, the patient required BiPAP. A chest x-ray in the ER showed pleural effusions and pulmonary edema, and chest x-ray yesterday showed worsening bilateral infiltrates with basilar atelectasis and small pleural effusions. This morning, chest x-ray revealed pulmonary edema and questionable pleural effusions. The patient currently is on BiPAP with FiO2 at 80%. He is resting comfortably in bed. The patient's daughter is at the bedside. The patient's daughter reported that patient has been really weak recently. He did have shortness of breath but no cough, wheezing, fever, pedal edema, or significant weight gain. The patient has had persistent weight loss recently. The patient is drowsy but arousable. He has a hard time to talk over the BiPAP mask. PAST MEDICAL HISTORY: 1. Coronary artery disease. Has a history of myocardial infarction in 1994, status post coronary artery bypass grafting in April 2014, together with a vein graft and tissue valve replacement of his aortic valve. 2. Aortic stenosis, status post aortic valve replacement in April 2014. 3. Paroxysmal atrial fibrillation. 4. COPD. 5. Hypertension. 6. Hyperlipidemia. 7. Hypothyroidism. 8. History of cerebrovascular accident. 9. History of prostate and skin cancer 10. Myelodysplastic syndrome. 11. Abdominal aortic aneurysm. 12. Systolic congestive heart failure. Echocardiogram from yesterday showed estimated left ventricular ejection fraction approximately 30% to 35% in the setting of global hypokinesis. SOCIAL HISTORY: Patient lives at home with his family. He apparently is a never smoker. FAMILY HISTORY: Positive for hypertension. ALLERGIES: Sulfa. REVIEW OF SYSTEMS: Unable to be obtained. PHYSICAL EXAMINATION: Vital Signs: Temperature 98.3, blood pressure 141/59, pulse 47, respiratory rate 25, oxygen saturation 100% on BiPAP with FiO2 100% and pressure 16/6. General: Elderly, lying in bed. Appears drowsy but arousable with no acute distress noted. The patient's daughter is at the bedside. HEENT: Atraumatic, normocephalic. Poor dentition. Trachea midline. Mucosa pink and slightly dry. Cardiovascular: Regular rate and rhythm with normal bradycardia, and irregularity noted at times. Gastrointestinal: Soft, nondistended, nontender. Normoactive bowel sounds in all 4 quadrants. Respiratory: Tachypnea with no increased work of breathing or accessory muscle use. Symmetrical excursion. Auscultation revealed early inspiratory crackles bibasilarly. Extremities: No pedal edema. No cyanosis. No clubbing. Dorsalis pedis 1+ bilaterally. Neurologic: Drowsy but arousable with generalized weakness. LAB DATA: White blood cells 10.27, hemoglobin 7.1, hematocrit 24.1, platelets 58. Sodium 146 ,potassium 3.1, chloride 99, carbon dioxide 31, BUN 33, creatinine 1.1, and glucose 93. ABG: pH of 7.45, pCO2 of 52, PO2 of 63, HC03 of 33.3, base excess of 10.8 and oxyhemoglobin of 92.9. IMAGING DATA: Chest x-ray this morning revealed pulmonary edema, questionable pleural effusions. ASSESSMENT: This is an 83-year-old male with a medical history of coronary artery disease, aortic stenosis, paroxysmal atrial fibrillation, systolic congestive heart failure, COPD, hypertension, hyperlipidemia, hypothyroidism, history of CVA, history of prostate and skin cancer, myelodysplastic syndrome, and abdominal aortic aneurysm. He has been admitted to [facility] since 04/19/2019 with acute systolic congestive heart failure exacerbation and acute hypoxic respiratory failure. 1. Acute hypoxic respiratory failure secondary to acute congestive heart failure exacerbation. 2. Persistent pulmonary edema with pleural effusions. Chest x-ray revealed pleural thickening and apparent loculated effusion on the right. 3. Systolic congestive heart failure exacerbation. 4. Chronic obstructive pulmonary disease. No exacerbation noted. PLAN: 1. Continue supplemental oxygen. Continue BiPAP as needed 2. 2. Patient is DO NOT RESUSCITATE level 1. 3. Continue antibiotics, bronchodilators, and diuretic. 4. Continue GI and DVT prophylaxis. 5. Follow up with chest x-ray, ABG, CBC, BMP, urine culture, sputum culture and blood culture. 6. Further recommendations pending hospital course. Thank you for the courtesy of this consult. Dictated by KENDRA Giles for Phoebe Nuñez MD cc: KENDRA Giles MD [facility]
[2019-04-21] MEDS: LIPITOR PO SCH (21:19)
[2019-04-22] MEDS: LOPRESSOR PO SCH ×3 (03:02→16:25)
[2019-04-22] MEDS: DUONEB (A & A) INH SCH ×3 (03:32→15:31)
[2019-04-22 04:54] LABS: ALLEN TEST YES; BE 17.9 mmoll (-3.0-3.0); BLOOD TYPE ARTERIAL; HCO3-(ACT) 38.9 mmoll (20.0-26.0); O2(CT) 9.9 mL/dL (15.0-23.0); O2HB 96.4 % (95.0-99.0); PO2(98.6) 112 mmHg (60-100); SAMPLE BLOOD; SAO2 99.2 % (95.0-100.0); SRATE 18 BPM; THB 7.1 g/dL (11.5-17.4); pH(98.6) 7.48 (7.35-7.45)
[2019-04-22 04:59] LABS: MODALITY VENTIMASK; PCO2(98.6) 58 mmHg (35-45)
[2019-04-22] MEDS: SYNTHROID PO SCH (06:13)
[2019-04-22 06:25] LABS: HEMATOCRIT 22.8 % (42.0-52.0); HEMOGLOBIN 6.6 g/dL (14.0-18.0); IMM GRAN# 0.02 X1000 (0.0-0.04); IMM GRAN% 0.2 % (0.0-0.5); LYMPH# 0.32 X1000 (1.2-3.4); LYMPH% 3.1 % (20.5-51.1); MCH 30.8 PG (27-31); MCHC 28.9 g/dL (33-37); MCV 106.5 FL (81-99); MONO# 0.93 X1000 (0.11-0.59); MONO% 9.1 % (1.7-9.3); MPV 10.5 FL (7.4-10.4); NEUT% 87.6 % (42.2-75.2); PLT 52 X1000 (130-400); RBC 2.14 XMIL (4.7-6.1); RDW 14.3 % (11.5-14.5); WBC 10.27 X1000 (4.8-10.8)
[2019-04-22 06:38] LABS: AGAP 11; BUN 29 mg/dL (8-22); CALCIUM 8.8 mg/dL (8.8-10.2); CHLORIDE 98 mmol/L (98-107); COSMO 296; CREATININE 0.7 mg/dL (0.7-1.2); ESTIMATED GFR > 60; GLUCOSE 131 mg/dL (70-104); POTASSIUM 3.5 mmol/L (3.5-5.1); SODIUM 145 mmol/L (136-145); TCO2 36 mmol/L (25-35)
--- NOTE | 2019-04-22 07:40 | Diag Imaging Result Doc PS360 ---
EXAM: CHEST-1 VIEW 04/22/2019 HISTORY: SOB TECHNIQUE: AP portable at 0544 COMMENT: There is diffuse alveolar and interstitial opacity in both lungs. This has improved slightly with respect to the lingula since the previous study of 04/21/2019. There is apparent loculated pleural fluid on the right. IMPRESSION: Pulmonary edema, ARDS, and/or pneumonia, slightly improved on the left. Electronically signed by Randell Tran 04/22/2019 7:37 AM
[2019-04-22] MEDS ORDERED: NS 500 ML IV ONE (07:48)
[2019-04-22 08:05] LABS: BANDS 6 % (0-1); EOS 3 % (1-10); LYMPHS 1 % (21-51); SEGS 86 % (42-75)
[2019-04-22 08:06] LABS: HYPOCHROM 1+
[2019-04-22] MEDS: LASIX IV SCH (08:10)
[2019-04-22] MEDS: PRILOSEC PO SCH (08:10)
[2019-04-22] MEDS: BUSPAR PO SCH (08:10)
[2019-04-22] MEDS: ELIQUIS PO SCH (08:10)
[2019-04-22] MEDS: CORDARONE PO SCH (08:11)
[2019-04-22] MEDS: COZAAR PO SCH (08:11)
[2019-04-22] MEDS: ASPIRIN PO SCH (08:11)
[2019-04-22] MEDS: MAXIPIME 1 GM in NS 50 ML IV SCH (08:36)
--- NOTE | 2019-04-22 08:41 | CARDIOLOGY PROGRESS NOTE ---
DATE: 04/22/2019 CHIEF COMPLAINT: Dyspnea. SUBJECTIVE: Mr. Christensen continues to be very short of breath. He is awake. He is not as obtunded as he was a couple of days ago. Unfortunately, his chest x-ray today shows really significant bilateral infiltration. This is consistent with ARDS. His white cell count today is 10,270 with 6% bands. He has metamyelocytes on the peripheral blood. His platelet count is down to 52,000. His hemoglobin is 6.6 g. He is on a BiPAP mask. OBJECTIVE: Temperature is 98.3, pulse 74, respirations 32, blood pressure 98/59. General: Elderly, pale, in some respiratory distress. HEENT: Unremarkable. Chest: Diminished breath sounds with crepitans bilaterally. Heart sounds distant, regular, with systolic murmur. Abdomen is nontender. Extremities showed no obvious edema. Neurologic: He responds appropriately. DIAGNOSTIC DATA: EKG from 04/20/2019 showed what appears to be regular rhythm with a bundle branch block. His blood gases from 04/22/2019 showed pH of 7.48, pO2 of 112, pCO2 of 58. Sodium 145, potassium 3.5, BUN is 29, creatinine 0.7. IMPRESSION: 1. The patient presented with increasing dyspnea, abnormal chest x-ray, consistent with pneumonia/adult respiratory distress syndrome/pulmonary edema. 2. Possible transient ischemic attack with weakness of the left upper extremity. 3. Paroxysmal atrial fibrillation. 4. Coronary heart disease with previous bypass. 5. Chronic left ventricular systolic dysfunction/congestive heart failure. 6. Myelodysplastic syndrome. 7. Status post aortic valve replacement. RECOMMENDATIONS: At this time, the patient is really not improving. His prognosis is really very poor. I am afraid that with the way his chest x-ray looks, he may be developing ARDS. The family has already opted for a do not resuscitate level 1 status. Hospice will be appropriate given the poor prognosis. We will follow him. cc: Florentino Holley MD
[2019-04-22] MEDS: CLINIMIX E 4.25%-5% SOLUTION 1,000 ML IV SCH (09:17)
--- NOTE | 2019-04-22 10:20 | PROGRESS NOTE ---
DATE: 04/22/2019 SUBJECTIVE: The patient is still lying in bed. He is not complaining of pain at this moment. He is sleepy, but arousable. He moves all 4 extremities spontaneously, but he has severe weakness, and weak cough as well. He has not been able to eat. Likely, this patient has ARDS on top of his current condition with systolic heart failure exacerbation and pulmonary edema. His prognosis is extremely poor. I do believe now he is appropriate for hospice. OBJECTIVE: Vital Signs: Temperature 98.3 degrees, pulse 74, respiratory rate 32, blood pressure 98/59 and oxygen saturation 100% on the BiPAP machine . HEENT: Head normocephalic. No trauma. PERRLA. Neck: Supple. No JVD. No masses. Central trachea. Chest: Coarse breath sounds bilaterally with generalized crepitus. Abdomen: Soft, nontender, and nondistended. No hepatosplenomegaly. Extremities: No edema. No clubbing. No cyanosis. Neurological: The patient is sleepy, but arousable. He is following commands. LABORATORY: WBC 10.2, hemoglobin 6.6, hematocrit 22.8, and platelets 52,000. Sodium 145, potassium 3.5, chloride 98, bicarbonate 36, BUN 29, creatinine 0.7 glucose 131, and calcium 8.8. ASSESSMENT AND PLAN: 1. Acute systolic heart failure exacerbation. I will continue with the same management for now. So far, we have around 2.7 L negative balance. Cardiology Department following this patient closely. Recent echocardiogram showed an ejection fraction of 30 to 35% with global hypokinesis. 2. Acute respiratory failure with hypoxemia and likely ARDS. Continue with the BiPAP machine for now. Cardiology Department on board. I do not think he is getting better. 3. Possible underlying pneumonia. Continue with antibiotics. 4. Hypokalemia resolved. 5. Bilateral pulmonary edema, likely due to CHF, but this could be multifactorial. 6. Atrial fibrillation. We will monitor. Continue home medication. 7. Anemia. Hemoglobin dropped to 6.6. I will give him 1 unit of blood. He is on Eliquis. 8. History of coronary artery disease status post CABG and stenting, aortic valve replacement, aware. He is on Eliquis. 9. Abdominal aortic aneurysm aware. 10. Hypothyroidism. Continue with Synthroid. 11. Hypertension stable. 12. Myelodysplastic syndrome. We will continue to monitor his blood count. Hemoglobin dropped to 6.6, and I will give him 1 unit of blood. Platelet count still low. 13. Right clavicular fracture. This is basically new and happened as an outpatient. He had some bruises, but he is not complaining of pain at this moment. 14. This patient is DNR level 1. He has poor prognosis given his age, current condition and multiple comorbidities. His oxygen saturation dropped without the BiPAP machine. He has not been able to tolerate p.o. We will continue the Clinimix. I do believe at this time he is appropriate for hospice. cc: Ammon Doran MD
[2019-04-22 14:16] VITALS: BP 90/54
[2019-04-22] MEDS ORDERED: ATIVAN IV ONE (17:08)
[2019-04-22] MEDS ORDERED: SOLU-MEDROL IV SCH (20:00)
--- NOTE | 2019-04-23 10:27 | DISCHARGE SUMMARY ---
ADMISSION DATE: 04/19/2019 DISCHARGE DATE: 04/22/2019 DISCHARGE DIAGNOSES: 1. Acute systolic heart failure exacerbation. 2. Acute respiratory failure with hypoxemia and likely acute respiratory distress syndrome. 3. Possible underlying pneumonia. 4. Hypokalemia. 5. Bilateral pulmonary edema. 6. Atrial fibrillation. 7. Anemia. 8. History of coronary artery disease status post coronary artery bypass graft and stenting. 9. Aortic valve replacement. 10. Chronic anticoagulation. 11. Abdominal aortic aneurysm. 12. Hypothyroidism. 13. Hypertension. 14. Myelodysplastic syndrome. 15. Right clavicular fracture. 16. This patient is do not resuscitate. PROCEDURES PERFORMED: 1. Head CT scan dated 04/19/2019; Impression: Atrophy, no hemorrhage. 2. Chest x-ray dated 04/19/2019; Impression: Pleural effusion and pulmonary edema. 3. Chest x-ray dated 04/20/2019; Impression: Worsening bilateral infiltrates. 4. Echocardiogram dated 04/20/2019; Impression: Ejection fraction of 30 to 35 percent, elevated central venous pressure is suggested based on the appearance of the inferior vena cava. The aortic valve has been replaced with bioprosthesis. 5. Chest x-ray dated 04/21/2019; Impression: Pulmonary edema/acute respiratory distress syndrome/Pleural effusion. 6. Chest x-ray dated 04/30/2019; Impression: Pulmonary edema, acute respiratory distress syndrome and/or pneumonia. It is slightly improved on the left. CONSULTATIONS: 1. Cardiology Department, Dr. Holley. 2. Pulmonary Department, Dr. Nuñez. HOSPITAL COURSE: An 83-year-old male with a past medical history of AAA, myelodysplastic syndrome, CHF, hypertension, CVA, hypothyroidism, skin cancer, prostate cancer, coronary artery disease, hyperlipidemia, atrial fibrillation, recently discharged from our service for new-onset atrial fibrillation and hypomagnesemia. He was readmitted on 04/19/2019. The patient states that he started having left hand numbness while at home. As per the , she believed that starting the day of admission he was also reporting some shortness of breath. The believes that also that started the day of admission. He was not able to communicate very well because of his shortness of breath, which was severe. He did have some lower pitting edema. The patient was not a good historian, nor his . As per the patient, he has fallen a couple times since discharge, and he has bruising all over his upper extremities, especially his right shoulder, with a small fracture at the clavicle. ProBNP greater than 35,000. Chest x-ray that showed pneumonia. Low magnesium. He was given IV Lasix. We will replace the magnesium. He was admitted to the PVC unit. We consulted Cardiology Department who took care of his medications, as well as Pulmonary Department. The patient was not improving on a daily basis. He was using the BiPAP machine and every time we tried to remove the BiPAP, his oxygen saturation was dropping really fast. Given his current condition, age and comorbidities, we have decided to have the conversation with the family about hospice care and they have decided to take this patient home. This patient was already DNR since admission. I will continue with his medications. I told to one of the daughters that at some point they need to stop the medications and keep him comfortable. He will be discharged today; again, he will be discharged with hospice. He does have poor prognosis. PHYSICAL EXAMINATION: Vital Signs: Temperature 98.2 degrees, pulse 93, respiratory rate 20, blood pressure 90/54, oxygen saturation 96 on the BiPAP machine. HEENT: Head normocephalic, no trauma. PERRLA. Neck: Neck is supple. No JVD. No masses. Central trachea. Chest: Coarse breath sounds bilaterally with generalized crepitus. Abdomen: Soft, nontender, nondistended. No hepatosplenomegaly. Extremities: Trace edema. No clubbing. No cyanosis. Neurological examination: The patient is awake. He is following commands. LABORATORY: Today WBC 10.2, hemoglobin 6.6, status post 1 PRBC. Hematocrit 22.8, platelet count 52. Sodium 145, potassium 3.5, chloride 98, bicarbonate 36. BUN 29, creatinine 0.7, glucose 131, calcium 8.8. DISCHARGE MEDICATIONS: 1. Amiodarone 200 mg p.o. b.i.d. 2. Augmentin 875/125 mg tablet twice a day to complete 7 days. 3. Eliquis 2.5 mg p.o. b.i.d. 4. Aspirin 81 mg p.o. daily. 5. Atorvastatin 40 mg p.o. at bedtime. 6. BuSpar 5 mg p.o. daily. 7. Vitamin B 12 1000 mcg p.o. daily. 8. Furosemide 40 mg p.o. b.i.d. 9. Iron 1 tablet p.o. daily. 10. Synthroid 50 mcg p.o. daily. 11. Losartan 50 mg p.o. daily. 12. Metoprolol 50 mg p.o. b.i.d. 13. Morphine liquid 0.25 mg p.o. q. 2 hours as needed; it can be increased between 0.25 to 1 mg every 2 hours as needed for shortness of breath or pain. 14. Omeprazole 40 mg p.o. daily. 15. Vitamin E 400 units p.o. daily. 16. Zinc 50 mg p.o. daily. His prognosis is really poor, family seems to understand. He is DNR level 1. He will be discharged home with hospice. cc: Ammon Doran MD
== END 2019-04-22 19:48 | disposition hospice, home (50) | DRG 291 ==
LOC: SUPCPDRO → ED 14:10 → EDIPHOLD 17:22 → 2N 20:46
PROVIDERS: ATTEND Internal Medicine